=== PATIENT | female | born 1990 | race Caucasian/White ===

== ENCOUNTER 2019-10-12 11:36 | Emergency (ER) | payer SELFPAY ==
--- OUTSIDE RECORDS SUMMARY | 2019-10-12 12:34 | XMS REPORT | Summary of Care ---
:1990 Author Organization [facility] Address [address] [place] [address]- Encounter HQ Elliott(FIN) [id number] Date(s): 11/09/18 - 11/09/[address] [address]- Encounter Diagnosis Hypokalemia (Discharge Diagnosis) - 11/09/18 Discharge Disposition: Home or Self Care Attending Physician: Kumar Evans MD Vital Signs Most recent to oldest 1 2 3 [Reference Range]: Height 170.18 cm (11/09/18 1:03 PM) Temperature Oral [96.4-99.1 98.9 DegF 99.7 DegF DegF] (11/09/18 7:23 PM) *HI* (11/09/18 1:03 PM) Blood Pressure [90-140/60-90 118/68 mmHg 120/71 mmHg 115 /67 mmHg mmHg] (11/09/18 7:23 PM) (11/09/18 5:33 PM) (11/09/18 4:0 5 PM) Respiratory Rate [14-20 BRMIN] 17 BRMIN 18 BRMIN 1 8 BRMIN (11/09/18 7:23 PM) (11/09/18 5:33 PM) (11/09/18 4:0 5 PM) Peripheral Pulse Rate [60-100 84 bpm 82 bpm 72 bpm bpm] (11/09/18 7:23 PM) (11/09/18 5:33 PM) (11/09/18 4:0 5 PM) Weight 62.273 kg (11/09/18 1:03 PM) Body Mass Index 21.5 m2 (11/09/18 1:03 PM) Problem List No data available for this section Allergies, Adverse Reactions, Alerts No Known Allergies Medications potassium chloride 20 mEq oral tablet, extended release 20 mEq = 1 tab, PO, BID, # 4 tab, 0 Refill(s) Start Date: 11/09/18 Status: Orderedpotassium chloride 20 mEq oral tablet, extended release 40 mEq, Route: PO, Drug form: ERTAB, ONCE, Dosing Weight 62.273, kg, Priority: STAT, Start date: 11/09/18 17:04:00 CDT, Stop date: 11/09/18 17:04:00 CDT Start Date: 11/09/18 Stop Date: 11/09/18 Status: CompletedSaline Flush 0.9% 10 mL, Route: IVP, Drug Form: INJ, Dosing Weight 62.273, kg, PRN, PRN Line Flush, Start date: 11/09/18 13:14:00 CDT, Duration: 30 day, Stop date: 12/09/18 13:13:00 CDT Notes: (Same as: BD Posiflush) Start Date: 11/09/18 Stop Date: 11/09/18 Status: Discontinued Results Most recent to oldest [Reference Range]: 1 Neutrophils # [1.5-8.1 K/CMM] 5.1 K/CMM (11/09/18 1:29 PM) Lymphocytes # [1.0-5.5 K/CMM] 1.1 K/CMM (11/09/18 1:29 PM) Monocytes # [0.0-0.8 K/CMM] 0.8 K/CMM (11/09/18 1:29 PM) Eosinophils # [0.0-0.5 K/CMM] 0.3 K/CMM (11/09/18 1:29 PM) eGFR 78 mL/min/1.73m2 1 *NA* (11/09/18 1:29 PM) A/G Ratio [0.7-1.6] 0.8 (11/09/18 1:29 PM) Albumin Lvl [3.5-5.0 g/dL] 3.8 g/dL (11/09/18 1:29 PM) Alk Phos [39-136 unit/L] 79 unit/L (11/09/18 1:29 PM) ALT [0-65 unit/L] 32 unit/L (11/09/18 1:29 PM) AGAP [10.0-20.0 mEq/L] 11.8 mEq/L (11/09/18 1:29 PM) AST [0-37 unit/L] 28 unit/L (11/09/18 1:29 PM) B/C Ratio [6-25] 8 (11/09/18 1:29 PM) Basophils [0.0-1.0 %] 0.4 % (11/09/18 1: PM) BUN [7-22 mg/dL] 8 mg/dL (11/09/18 1:29 PM) Calcium Lvl [8.5-10.5 mg/dL] 9.7 mg/dL (11/09/18 1: PM) Chloride Lvl [95-109 mEq/L] 103 mEq/L (11/09/18 1: PM) CO2 [24-32 mEq/L] 29 mEq/L (11/09/18: PM) Creatinine Lvl [0.50-1.40 mg/dL] 0.99 mg/dL (11/09/18 1: PM) Eosinophils [0.0-4.0 %] 3.7 % (11/09/18 1: PM) Globulin [2.7-4.2 g/dL] 4.6 g/dL *HI* (11/09/18:29 PM) Glucose Lvl [70-99 mg/dL] 117 mg/dL *HI* (11/09/18 1: PM) Hct [36.0-48.0 %] 40.9 % (11/09/18 1:29 PM) Hgb [12.0-16.0 g/dL] 13.6 g/dL (11/09/18 1:29 PM) Potassium Lvl [3.5-5.1 mEq/L] 2.8 mEq/L 2 *CRIT* (11/09/18 1:29 PM) Lipase Lvl [73-393 unit/L] 110 unit/L (11/09/18 1:29 PM) Lymphocytes [20.0-40.0 %] 14.7 % *LOW* (11/09/18 1:29 PM) MCH [27.0-31.0 pg] 26.7 pg *LOW* (11/09/18 1:29 PM) MCHC [32.0-36.0 g/dL] 33.3 g/dL (11/09/18 1:29 PM) MCV [80.0-98.0 fL] 80.3 fL (11/09/18 1:29 PM) Monocytes [2.0-12.0 %] 11.2 % (11/09/18 1:29 PM) MPV [7.4-10.4 fL] 9.6 fL (11/09/18 1:29 PM) Sodium Lvl [135-145 mEq/L] 141 mEq/L (11/09/18 1:29 PM) Platelet [133-450 K/CMM] 249 K/CMM (11/09/18 1:29 PM) Segs [45.0-75.0 %] 70.0 % (11/09/18 1:29 PM) Total Protein [6.4-8.4 g/dL] 8.4 g/dL (11/09/18 1:29 PM) RBC [4.20-5.40 M/CMM] 5.10 M/CMM (11/09/18 1:29 PM) RDW [11.5-14.5 %] 14.0 % (11/09/18 1:29 PM) S Preg [Negative] Negative *NA* (11/09/18 1:29 PM) Bili Total [0.2-1.3 mg/dL] 0.7 mg/dL (11/09/18 1:29 PM) UA Bacteria [None Seen /HPF] Occasional /HPF *NA* (11/09/18 1:29 PM) UA Bili [Negative] Negative *NA* (11/09/18 1:29 PM) UA Blood [Negative] Negative (11/09/18 1:29 PM) UA Color [Yellow] Light Yellow *NA* (11/09/18 1:29 PM) UA Glucose [Negative mg/dL] Negative mg/dL *NA* (11/09/18 1:29 PM) UA Ketones Negative *NA* (11/09/18 1:29 PM) UA Leuk Est [Negative] Negative (11/09/18 1:29 PM) UA Nitrite [Negative] Negative (11/09/18 1:29 PM) UA pH [5.0-8.0] 8.0 (11/09/18 1:29 PM) UA Protein [Negative mg/dL] Negative mg/dL (11/09/18 1:29 PM) UA Spec Grav [<=1.030] 1.004 (11/09/18 1:29 PM) UA Sq Epi [Few /LPF] Moderate /LPF *ABN* (11/09/18 1:29 PM) UA Turbidity [Clear] Clear (11/09/18 1:29 PM) UA Urobilinogen [0.1-1.0 mg/dL] 2.0 mg/dL *HI* (11/09/18 1:29 PM) UA WBC [0-5 /HPF] 2 /HPF (11/09/18 1:29 PM) WBC [3.7-10.4 K/CMM] 7.3 K/CMM (11/09/18 1:29 PM) Micro? Not Indicated *NA* (11/09/18 1:29 PM) 1Result Comment: The eGFR is calculated using the CKD-EPI formula. In most young, healthy individualsthe eGFR will be >90 mL/min/1.73m2. The eGFR declines with age. An eGFR of 60-89 may be normal insome populations, particularly the elderly, for whom the CKD-EPI formula has not been extensively validated. Use of the eGFR is not recommended in the following populations: Individuals with unstable creatinine concentrations, including patients and those with serious co-morbid conditions. Patients with extremes in muscle mass or diet. The data above are obtained from the National Kidney Disease Education Program (NKDEP) which additionally recommends that when the eGFR is used in patients with extremes of body mass index for purposesof drug dosing, the eGFR should be multiplied by the estimated BMI.2Result Comment: Critical Result(s) called to Evert Moore at 11/09/2018 14:04 by hy. Read back OK. Immunizations No data available for this section Procedures No data available for this section Social History Social History Type Response Smoking Status Unknown if ever smoked; Conc erns about tobacco use in household: No; Exposure to Tobacco Smoke None; Cigarette Smoking Last 365 Days No; Reg Smoking Cessation Counseling No entered on: 11/09/18 Assessment and Plan No data available for this section
--- OUTSIDE RECORDS SUMMARY | 2019-10-12 12:34 | XMS REPORT | Clinical Summary ---
:1990 Author Organization [facility] Address [address] [place] [address] Care Team Providers Name Role Phone Unavailable Primary Care Provider Unavailable Allergies No Known Allergies Medications Medication Sig Dispensed Refills Start Date End Date Status risperiDONE Take 1 tablet 60 tablet 0 09/01/2019 Act mane (RISPERDAL) 1 mg by mouth 2 tabletIndications: times daily. Unspecified mood (affective) disorder gabapentin Take 1 capsule 90 capsule 0 09/01/2019 Ac tive (NEURONTIN) 300 mg by mouth 3 capsuleIndications times daily. : Unspecified mood (affective) disorder risperiDONE Take 1 tablet 28 tablet 0 08/29/2019 09/01/2019 Di scontinued (RISPERDAL) 1 mg by mouth 2 tabletIndications: times daily Unspecified mood for 14 days. (affective) disorder gabapentin Take 1 capsule 42 capsule 0 08/29/2019 09/01/2019 D iscontinued (NEURONTIN) 300 mg by mouth 3 capsuleIndications times daily : Unspecified mood for 14 days. (affective) disorder Active Problems Problem Noted Date care in third trimester 07/03/2017 Polyhydramnios affecting 05/07/2017 Large for dates 05/07/2017 Marginal placenta previa 04/10/2017 Bipolar disorder Psychosis Amphetamine use disorder, severe, dependence Alcohol use disorder, moderate, dependence Chest pain Encounters Date Type Specialty Care Team Description 09/01/2019 Refill Psychiatry Shelley Mims Unspecified mood MD Fredy (affective) dis order 08/29/2019 - Emergency Emergency Medicine Jeanette Mcintosh MD Uns pecified mood (affective) disorder (Primary Dx); 08/30/2019 Bipolar affecti ve disorder, current episode mixed, current episode severity unspecified; Bipolar affecti ve disorder, remission status unspecified; Psychosis, unsp ecified psychosis type; Amphetamine use disorder, severe, dependence; Alcohol use dis order, moderate, dependence; Chest pain, uns pecified type 05/30/2019 - Emergency Emergency Medicine Moses Berry abdominal pain (Primary Dx); 05/31/2019 MD Zohaib Vagina bleeding after 10/11/2018 Social History Tobacco Use Types Packs/Day Years Used Date Current Every Day Smoker Smokeless Tobacco: Current User Alcohol Use Drinks/Week oz/Week Comments Never Alcohol Habits Answer Date Recorded How often do you have a drink containing alcohol? Never 08/29/2019 How many drinks containing alcohol do you have on a typical Not asked day when you are drinking? How often do you have six or more drinks on one occasion? No t asked Sex Assigned at Date Recorded Not on file Job Start Date Occupation Industry Not on file Not on file Not on file Travel History Travel Start Travel End No recent travel history available. Last Filed Vital Signs Vital Sign Reading Time Taken Comments Blood Pressure 130/87 08/29/2019 7:32 PM CDT Pulse 90 08/29/2019 7:32 PM CDT Temperature 36.8 C (98.2 F) 08/29/2019 7:32 PM CDT Respiratory Rate 18 08/29/2019 7:32 PM CDT Oxygen Saturation 100% 08/29/2019 7:32 PM CDT Inhaled Oxygen Concentration - - Weight 75 kg (165 lb 6.4 oz) 05/30/2019 6:34 PM ELECTRICAL POWER STATION TECHNICIAN Height - - Body Mass Index - - Plan of Treatment Health Maintenance Due Date Last Done Comments Cervical Cancer Scrn (3 Yrs) 09/04/2011 IMM Influenza Seasonal Feb to July (>/= 19 yrs) 02/23/2020 Procedures Procedure Name Priority Date/Time Associated Diagnosis Comme nts ECHG EKG PROC 12 LEAD Routine 08/29/2019 11:53 Re sults for this EKG; TRACING ONLY PM CDT procedure are in the results section. TROPONIN I POC Routine 08/29/2019 11:16 Results f or this PM CDT procedure are i n the results section. URINE DRUG SCREEN STAT 08/29/2019 9:58 Result s for this PM CDT procedure are i n the results section. TEST STAT 08/29/2019 9:58 Results f or this PM CDT procedure are i n the results section. ECHG EKG PROC 12 LEAD Routine 08/29/2019 9:43 Re sults for this EKG; TRACING ONLY PM CDT procedure are in the results section. BMP POC Routine 08/29/2019 9:30 Results for this PM CDT procedure are i n the results section. CREATININE POC Routine 08/29/2019 9:29 Results f or this PM CDT procedure are i n the results section. TROPONIN I POC Routine 08/29/2019 9:26 Results f or this PM CDT procedure are i n the results section. CBC STAT 08/29/2019 9:22 Results for this PM CDT procedure are i n the results section. CBC/DIFF STAT 08/29/2019 9:22 Results for this PM CDT procedure are i n the results section. XRAY CHEST 2 VIEWS STAT 08/29/2019 8:45 Bipolar affective Results for this PM CDT disorder, current procedure are in episode mixed, the results current episode section. severity unspecified POCT URINE DIPSTICK - STAT 05/30/2019 10:02 Re sults for this PM ELECTRICAL POWER STATION TECHNICIAN procedure are i n the results section. URINALYSIS STAT 05/30/2019 10:02 Results for this PM ELECTRICAL POWER STATION TECHNICIAN procedure are i n the results section. URINALYSIS STAT 05/30/2019 10:02 Results for this PM ELECTRICAL POWER STATION TECHNICIAN procedure are i n the results section. BMP POC Routine 05/30/2019 9:36 Results for this PM ELECTRICAL POWER STATION TECHNICIAN procedure are i n the results section. CBC STAT 05/30/2019 9:35 Results for this PM ELECTRICAL POWER STATION TECHNICIAN procedure are i n the results section. BETA-HCG, STAT 05/30/2019 9:35 Results for this QUANTITATIVE PM ELECTRICAL POWER STATION TECHNICIAN procedure are i n the results section. CBC/DIFF STAT 05/30/2019 9:35 Results for this PM ELECTRICAL POWER STATION TECHNICIAN procedure are i n the results section. after 10/11/2018 Results 12 LEAD EKG (08/29/2019 11:53 PM CDT) 12 LEAD EKG FOR P [facility] Test Date: 2019-08-29 Pat Name: EMANI Hart ment: [id number] Room: Gender: F Infection Control Coordinator: [id number] : 1990 Requested By: JEANETTE MCINTOSH Order Number: [id number] Nikhil camarena MD: Andria Call Measu rements Intervals [place] Rate: 81 P: 59 CO: 102 QRS: 81 QRSD: 89 T: 24 QT: 362 QTc: 421 Interpretive S tatements SINUS RHYTHM WITH SINUS ARRHYTHMIA WITH SHORT CO INTER PAULA NONSPECIFIC ST & T-WAVE ABNORMALITY Reviewed by Electronically Signed On 08-30-2019 5:07:37 CDT by Janusz Call Specimen Performing Organization Address [facility] Phone Number SMS POCT TROPONIN I POC docked device (08/29/2019 11:16 PM CDT)Only the most recent of2 resultswithin the time period is included. Pathologist Sig nature Troponin POC 0.01 0.00 - 0.08 ng/mL [facility] Specimen Blood, venous Performing Organization Address [facility] Phone Number [facility] [address] [place] [address] Urine Drug Screen (08/29/2019 9:58 PM CDT) Opiate, Ur Negative Negative [facility] Comment: [facility] Calibrated Standard: Morphine Positive if urine level > or = 300 ng/dL Amphetamine Positive (A) Negative [facility] Comment: [facility] Calibrated Standard: D-Methamphetamine Positive if urine level > or = 1000 ng/mL Barbiturate Negative Negative [facility] Comment: [facility] Calibrated Standard: Secobarbital Positive if urine level is > or = 200 ng/mL Benzodiazepine Negative Negative [facility] Comment: [facility] Calibrated Standard: Lormethazepam Positive if urine level is > or = 200 ng/mL Cocaine Negative Negative [facility] Comment: [facility] Calibrated Standard: Benzoylecgonine Positive if urine level > or = 300 ng/dL PCP Negative Negative [facility] Comment: [facility] Calibrated Standard: Phencyclidine Positive if urine level > or = 25 ng/dL Cannabinoid Negative Negative [facility] Comment: [facility] Calibrated Standard: 11 nor-delta(9)-THC carboxylic ac id Positive if urine level > or = 50 ng/mL Specimen Urine - Voided, urine Performing Organization Address [facility] Phone Number [facility] [address] [place], [place] [phone] Test (08/29/2019 9:58 PM CDT) Pathologist Sig nature Negative Negative [facility] Specimen Urine Performing Organization Address [facility] Phone Number [facility] [address] [place] [address] 12 LEAD EKG (08/29/2019 9:43 PM CDT) 12 LEAD EKG FOR [facility] SMS Test Date: 2019-08-29 Pat Name: EMANI Hart ment: [id number] Room: Gender: F Infection Control Coordinator: [id number] : 1990 2 Requested By: KYREE Marie Order Number: [id number] Nikhil camarena MD: Andria Call Measu rements Intervals [place] Rate: 76 P: -45 CO: 100 QRS: 79 QRSD: 90 T: 27 QT: 367 QTc: 414 Interpretive S tatements ECTOPIC ATRIAL RHYTHM WITH SHORT CO INTERVAL NONSPECIFIC T-WAVE ABNORMALITY ABNORMAL RHYTHM ECG Reviewed by Electronically Signed On 08-30-2019 5:08:22 CDT by Janusz Call Specimen Performing Organization Address [facility] Phone Number SMS POCT BMP POC docked device (08/29/2019 9:30 PM CDT)Only the most recent of2 resultswithin the time period is included. Pathologist Sig nature Sodium POC 139 136 - 145 mmol/L [facility] Potassium POC 3.6 3.5 - 5.1 mmol/L [facility] Chloride POC 104 98 - 107 mmol/L [facility] TCO2 POC 26 21 - 32 mmol/L [facility] Urea Nitrogen POC 11 7 - 18 mg/dL [facility] Glucose POC 88 74 - 106 mg/dL [facility] Hemoglobin POC 14.6 12 - 16 g/dL [facility] Hematocrit POC 43.0 37.0 - 47.0 % [facility] Specimen Blood, venous Performing Organization Address [facility] Phone Number [facility] [address] [place] [address] POCT CREATININE POC docked device (08/29/2019 9:29 PM CDT) Pathologist Sig nature Creatinine POC 0.7 0.6 - 1.3 mg/dL [facility] GFR, Estimated >90 >=90 mL/min/1.73 m2 [facility] Specimen Blood, venous Performing Organization Address City/State/Zipcode Phone Number [facility] [address] [place] [address] [phone] CBC/Diff (08/29/2019 9:22 PM CDT)Only the most recent of2 resultswithin the time period is included. WBC 7.5 4.5 - 11.0 K/uL [facility] RBC 4.81 4.20 - 5.40 [facility] M/uL Hemoglobin 13.5 12.0 - 16.0 [facility] g/dL Hematocrit 41.9 37.0 - 47.0 % [facility] MCV 87.1 82.0 - 92.0 fL [facility] MCH 28.1 27.0 - 32.0 pg [facility] MCHC 32.2 32.0 - 36.0 [facility] g/dL RDW 41.8 36.4 - 46.3 fL [facility] Platelet 172 150 - 400 K/uL [facility] Mean Platelet Volume 11.8 9.4 - 12.4 fL [facility] Percent NRBC 0.0 % [facility] Neutrophil 63.7 34.0 - 70.0 % [facility] Lymphs 27.9 20.0 - 50.0 % [facility] Monocytes 7.5 5.0 - 12.0 % [facility] Eos 0.3 (L) 0.7 - 5.0 % [facility] Basos 0.5 0.1 - 1.2 % [facility] Immature Granulocytes 0.1 0.0 - 0.5 % [facility] Neutrophils (Absolute) 4.78 1.56 - 6.13 [facility] Y K/uL Lymphs (Absolute) 2.09 1.18 - 3.74 [facility] K/uL Monocytes(Absolute) 0.56 (H) 0.24 - 0.36 [facility] K/uL Eos (Absolute) 0.02 (L) 0.04 - 0.36 [facility] K/uL Baso (Absolute) 0.04 0.01 - 0.08 [facility] K/uL Immature Grans (Abs) 0.01 0.00 - 0.03 [facility] K/uL Absolute NRBC 0.00 K/uL [facility] Specimen Blood Performing Organization Address [facility]/Zipcode Phone Number [facility] [address] [place] [address] XRAY CHEST 2 VIEWS (08/29/2019 8:45 PM CDT) Specimen Impressions Performed At IMPRESSION: [facility] No acute thoracic abnormality. Dictated By: Graham Garcia MD, 0 9:32 PM I have reviewed the study and agree with the findings in this report. Signed By: Justina Magana MD, 08/29/2019 9:46 PM Narrative Performed At EXAMINATION: XRAY CHEST 2 VIEWS, Front al and lateral SMS INDICATION: CP COMPARISON: None FINDINGS: TUBES/LINES/DEVICES: None LUNGS: No consolidations or edema. PLEURA: No effusions or pneumothorax. HEART/MEDIASTINUM: Normal cardiomedias tinal silhouette. MUSCULOSKELETAL: No acute findings. UPPER ABDOMEN: Normal Procedure Note Interface, Rad/Mammog In - 08/29/2019 9 :52 PM CDT EXAMINATION: XRAY CHEST 2 VIEWS, Frontal and lateral INDICATION: CP COMPARISON: None FINDINGS: TUBES/LINES/DEVICES: None LUNGS: No consolidations or edema. PLEURA: No effusions or pneumothorax. HEART/MEDIASTINUM: Normal cardiomediast inal silhouette. MUSCULOSKELETAL: No acute findings. UPPER ABDOMEN: Normal IMPRESSION IMPRESSION: No acute thoracic abnormality. Dictated By: Graham Garcia MD, 0 9:32 PM I have reviewed the study and agree with the findings in this report. Signed By: Justina Magana MD, 08/29/2019 9:46 PM Performing Organization Address [facility]/Zipcode Phone Number [facility] Urinalysis (05/30/2019 10:02 PM ELECTRICAL POWER STATION TECHNICIAN) Pathologist Sig nature Color Yellow Colorless, Straw, [facility] Yellow Clarity Hazy (A) Clear [facility] Spec [place], Ur 1.028 1.001 - 1.035 [facility] pH, Ur 6.0 5.0 - 8.0 [facility] Protein, Ur 2+ (A) Negative mg/dL [facility] Glucose, Ur Negative Negative mg/dL [facility] Ketone, Ur Negative Negative mg/dL [facility] Bilirubin, Ur Negative Negative mg/dL [facility] Nitrite, Ur Negative Negative [facility] Leukocyte Negative Negative mg/dL [facility] Blood, Ur 3+ (A) Negative mg/dL [facility] RBC 92 (H) 0 - 4 /HPF [facility] WBC 2 0 - 5 /HPF [facility] Epithelial Cell 20 (H) <=1 /HPF [facility] Mucous Present (A) None seen /HPF [facility] Urobilinogen, Ur <1.0 <1.0 EU/dL [facility] Specimen Urine Performing Organization Address [facility] Phone Number [facility] [address] [place], [place] [phone] POCT Urine - (05/30/2019 10:02 PM ELECTRICAL POWER STATION TECHNICIAN) Pathologist Sig nature Control paSS neg Hcg, Quantitative (05/30/2019 9:35 PM ELECTRICAL POWER STATION TECHNICIAN) Pathologist Sig nature hCG, Quantitative <1.0 <5.0 mIU/mL [facility] Specimen Blood Performing Organization Address [facility] Phone Number [facility] [address] [place], [place] [phone] after 10/11/2018 Insurance Payer Benefit Plan / Subscriber ID Effective Dates Phone Addre ss Type Group [facility] CH[facility]LE xxxxxxx 2019- [phone] [id number] [place] [address] [facility] FAMILY xxxxxxx 2019-Presen [phone] [id number] [place] [address]
--- OUTSIDE RECORDS SUMMARY | 2019-10-12 12:34 | XMS REPORT | Continuity of Care Document ---
:1990 Author Organization [facility] Information [place] Care Team Providers Name Role Phone [facility] [place] Unavailable Un available Problems Problem Status Onset Classification Date Comments Sourc e Date Reported Hypokalemia 11/11/2018 [place] rial 9 [facility] FLANK PAIN Active Memori al 9 [facility] Medications Medication Details Route Status Patient Ordering Order Source Instructions Provider Date potassium 20 mEq = 1 Active chloride 20 tab, PO, 019 [facility] oral BID, # 4 [facility] tablet, tab, 0 extended Refill(s) release potassium 40 mEq, Inactive chloride 20 Route: PO, 019 [facility] mEq oral Drug form: [facility] tablet, ERTAB, extended ONCE, release Dosing Weight 62.273, kg, Priority: STAT, Start date: 11/09/18 17:04:00 CDT, Stop date: 11/09/18 17:04:00 CDT Saline Flush Notes: Inactive 0.9% (Same as: 019 [facility] [place] Posiflush) Allergies, Adverse Reactions, Alerts No Known Medication Allergies Immunizations No Data Provided for This Section Results Order Name Results Value Reference Date Interpretation Comments Natasha rce Range CHEM PANEL Lipase Lvl 110 73 - 393 11/09 [facility] ELECTROLYTE AGAP 11.8 10.0 - 11/09 MH S 20.0 [facility] ELECTROLYTE B/C Ratio 8 6 - 25 11/09 [facility] ELECTROLYTE Globulin 4.6 2.7 - 4.2 11/09 S [facility] ELECTROLYTE A/G Ratio 0.8 0.7 - 1.6 11/09 S [facility] ELECTROLYTE Glucose Lvl 117 70 - 99 11/09 [facility] ELECTROLYTE BUN 8 7 - 22 11/09 S [facility] ELECTROLYTE CO2 29 24 - 32 11/09 S [facility] ELECTROLYTE Chloride Lvl 103 95 - 109 11/09 [facility] ELECTROLYTE Potassium 2.8 3.5 - 5.1 11/09 Result S Lvl Comment: [facility] Result(s) called to Evert Moore at 11/09/2018 14:04 by hy. Read back OK. ELECTROLYTE Sodium Lvl 141 135 - 145 11/09 MH S [facility] ELECTROLYTE AST 28 0 - 37 11/09 MH S [facility] ELECTROLYTE Creatinine 0.99 0.50 - 11/09 MH S Lvl 1.40 [facility] ELECTROLYTE ALT 32 0 - 65 11/09 MH S [facility] ELECTROLYTE eGFR 78 11/09 Result S Comment: The [facility] eGFR is [place] calculated using the CKD-EPI formula. In most young, healthy individuals the eGFR will be >90 mL/min/1.73m2 . The eGFR declines with age. An eGFR of 60-89 may be normal in some populations, particularly the elderly, for whom the CKD-EPI formula has not been extensively validated. Use of the eGFR is not recommended in the following populations:< br/>
[place] viduals with unstable creatinine concentration s, including patients and those with serious co-morbid conditions.<b r/>
Patie nts with extremes in muscle mass or diet.

The data above are obtained from the National Kidney Disease Education Program (NKDEP) which additionally recommends that when the eGFR is used in patients with extremes of body mass index for purposes of drug dosing, the eGFR should be multiplied by the estimated BMI. ELECTROLYTE Total 8.4 6.4 - 8.4 11/09 MH S [facility] ELECTROLYTE Bili Total 0.7 0.2 - 1.3 11/09 MH S [facility] ELECTROLYTE Calcium Lvl 9.7 8.5 - 10.5 11/09 MH S [facility] ELECTROLYTE Albumin Lvl 3.8 3.5 - 5.0 11/09 MH S [facility] ELECTROLYTE Alk Phos 79 39 - 136 11/09 MH S [facility] ENDOCRINOLO S Preg Negative Negative 11/09 GY *NA* /2018 [facility] (11/09/18 1:29 PM) [facility] HEMATOLOGY MPV 9.6 7.4 - 10.4 11/09 [facility] HEMATOLOGY MCHC 33.3 32.0 - 11/09 MH 36.0 [facility] HEMATOLOGY RDW 14.0 11.5 - 11/09 MH 14.5 /2019 [facility] HEMATOLOGY Platelet 249 133 - 450 11/09 /2018 [facility] HEMATOLOGY RBC 5.10 4.20 - 11/09 MH 5.40 /2018 [facility] HEMATOLOGY WBC 7.3 3.7 - 10.4 11/09 /2018 [facility] HEMATOLOGY Hct 40.9 36.0 - 11/09 MH 48.0 /2018 [facility] HEMATOLOGY Hgb 13.6 12.0 - 11/09 MH 16.0 /2018 [facility] HEMATOLOGY MCH 26.7 27.0 - 11/09 MH 31.0 /2018 [facility] HEMATOLOGY MCV 80.3 80.0 - 11/09 MH 98.0 /2018 [facility] HEMATOLOGY Eosinophils 3.7 0.0 - 4.0 11/09 /2018 [facility] HEMATOLOGY Eosinophils 0.3 0.0 - 0.5 11/09 # /2018 [facility] HEMATOLOGY Lymphocytes 1.1 1.0 - 5.5 11/09 # /2018 [facility] HEMATOLOGY Monocytes # 0.8 0.0 - 0.8 11/09 /2018 [facility] HEMATOLOGY Basophils 0.4 0.0 - 1.0 11/09 /2018 [facility] HEMATOLOGY Neutrophils 5.1 1.5 - 8.1 11/09 # /2018 [facility] HEMATOLOGY Lymphocytes 14.7 20.0 - 11/09 40.0 /2018 [facility] HEMATOLOGY Monocytes 11.2 2.0 - 12.0 11/09 /2018 [facility] HEMATOLOGY Segs 70.0 45.0 - 11/09 75.0 [facility] URINE AND UA Ketones Negative 11/09 STOOL /2018 [facility] URINE AND UA WBC 2 0 - 5 11/09 STOOL /2018 [facility] URINE AND Micro? Not Indicated 11/09 STOOL *NA* /2018 [facility] (11/09/18 1:29 PM) [facility] URINE AND UA Bacteria Occasional None Seen 11/09 STOOL /HPF /HPF /2018 [facility] URINE AND UA Sq Epi Moderate Few /LPF 11/09 STOOL /LPF /2018 [facility] URINE AND UA 2.0 0.1 - 1.0 11/09 STOOL Urobilinogen /2018 [facility] URINE AND UA Nitrite Negative Negative 11/09 STOOL (11/09/18 1:29 PM) /2018 [facility] URINE AND UA Leuk Est Negative Negative 11/09 STOOL (11/09/18 1:29 PM) /2018 [facility] URINE AND UA Blood Negative Negative 11/09 STOOL (11/09/18 1:29 PM) /2018 [facility] URINE AND UA Protein Negative Negative 11/09 STOOL mg/dL mg/dL /2018 [facility] URINE AND UA Glucose Negative Negative 11/09 STOOL mg/dL mg/dL /2018 [facility] URINE AND UA Bili Negative Negative 11/09 STOOL *NA* /2018 [facility] (11/09/18 1:29 PM) [facility] URINE AND UA pH 8.0 5.0 - 8.0 11/09 STOOL /2018 [facility] URINE AND UA Color Light Yellow Yellow 11/09 STOOL *NA* /2018 [facility] (11/09/18 1:29 PM) [facility] URINE AND UA Turbidity Clear Clear 11/09 STOOL (11/09/18 1:29 PM) /2018 [facility] URINE AND UA Spec Grav 1.004 <=1.030 11/09 STOOL /2018 [facility] Pathology Reports No Data Provided for This Section Diagnostic Reports No Data Provided for This Section Consultation Notes No Data Provided for This Section Discharge Summaries No Data Provided for This Section History and Physicals No Data Provided for This Section Vital Signs Vital Sign Value Date Comments Source Respitory Rate 17 11/10/2018 [facility] Temperature Oral (F) 98.9 F 11/10/2018 [facility] Heart Rate 84 11/10/2018 [facility] Systolic (mm Hg) 118 11/10/2018 [facility] Diastolic (mm Hg) 68 11/10/2018 [facility] [place] Heart Rate 82 11/09/2018 [facility] Respitory Rate 18 11/09/2018 [facility] Systolic (mm Hg) 120 11/09/2018 [facility] Diastolic (mm Hg) 71 11/09/2018 [facility] [place] Heart Rate 72 11/09/2018 [facility] Systolic (mm Hg) 115 11/09/2018 [facility] Diastolic (mm Hg) 67 11/09/2018 [facility] Respitory Rate 18 11/09/2018 [facility] Weight 62.273 11/09/2018 [facility] Temperature Oral (F) 99.7 F 11/09/2018 [facility] Height 170.18 cm 11/09/2018 [facility] BMI Calculated 21.5 11/09/2018 [facility] C it[facility] Encounters Location Location Encounter Encounter Reason Attending ADM DC Stat us Source Details Type Number For Provider Date Date Visit [facility] Emergency [id number] uKmar Evans 11/09 11/10 [facility] /2018 [facility] Procedures No Data Provided for This Section Assessment and Plan No Data Provided for This Section Plan of Care No Data Provided for This Section Social History Social History Date Source Social History TypeResponse 11/09/2018 [facility] Smoking Status Unknown if ever smoked; Concerns about t obacco use in household: No; Exposure to Tobacco Smoke None; Cigarette Smoking Last 365 Days No; Reg Smoking Cessation Counseling No entered on: 11/09/18 Family History No Data Provided for This Section Advance Directives No Data Provided for This Section Functional Status No Data Provided for This Section
--- OUTSIDE RECORDS SUMMARY | 2019-10-12 12:35 | XMS REPORT ---
:1990 Author Organization [facility] t Address [address] [place]. [address] [place] [address] Care Team Providers Name Role Phone Prasanna ADAIR, E Attending Clinician Nima ADAIR Attending Clinician Jamal ADAIR D Attending Clinician Rickey Evans Attending Clinician Payers Payer Name Policy Type Policy Number Effective Date Expiration Date S tisha HOMELESS xxxxxxx 2019 2020 Larios GRANTHOMELESS 00:00:00 23:59:59 Health EVOEJcnrxthy51/1/[id number]- [id number] [place] [address] [facility] xxxxxxx 2019 Larios PLANNING 00:00:00 [facility] [phone], [place] [address] Problems Condition Condition Condition Status Onset Resolution Last Treating Co mments Source Name Details Category Date Date Treatment Clinician Date Disease Active Mode pool care in care in 07-03 Health third third 00:00: trimester trimester 00 Polyhydram Polyhydram Disease Active 2016-05 H rosa jaimes nios - Health affecting affecting 00:00: 00 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 Benji ris dates dates 07-08 Health 00:00: 00 Marginal Marginal Disease Active 2016-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 Social History Social Habit Start Date Stop Date Quantity Comments Source History SDOH Alcohol [facility] Std Drinks History SDNC Alcohol [facility] Binge Sex Assigned At [facility] Health Alcohol intake 2019-08-29 2019-08-29 [facility] 00:00:00 00:00:00 History SDOH Alcohol 2019-08-29 2019-08-29 1 [facility] Frequency 00:00:00 00:00:00 Smoking Status Start Date Stop Date Source Current every day smoker 2019-08-29 00:00:00 [facility] Medications Ordered Filled Start Stop Current Ordering Indication Dosage Frequency Signature Comments Components Source Medication Medication Date Date Medication? Clinician (SIG) Name Name risperiDONE Yes Unspecified 1mg Q.5D Take 1 [place] (RISPERDAL) 08-31 mood tablet by [facility] lt 1 mg tablet 00:00: (affective) mouth 2 00 disorder times daily. gabapentin Yes Unspecified 300mg Take 1 [place] (NEURONTIN) 08-31 mood capsule by alth 300 mg 00:00: (affective) mouth 3 capsule 00 disorder times daily. risperiDONE 2019- No Unspecified 1mg Q.5D Take 1 [place] (RISPERDAL) 08-28 mood tablet by He alth 1 mg tablet 00:00: 00:00 (affective) mouth 2 00 :00 disorder times daily for 14 days. gabapentin No Unspecified 300mg Take 1 [place] (NEURONTIN) 08-28 mood capsule by ealth 300 mg 00:00: 00:00 (affective) mouth 3 capsule 00 :00 disorder times daily for 14 days. Vital Signs Vital Name Observation Time Observation Value Comments Source Systolic blood pressure 2019-08-29 19:32:00 130 mm[Hg] [facility] Diastolic blood pressure 2019-08-29 19:32:00 87 mm[Hg] [facility] Heart rate 2019-08-29 19:32:00 90 /min [facility] Body temperature 2019-08-29 19:32:00 36.78 Carleen [facility] Respiratory rate 2019-08-29 19:32:00 18 /min Jessica is [facility] Oxygen saturation in 2019-08-29 19:32:00 100 /min [facility] Arterial blood by Pulse oximetry Body weight 2019-05-30 18:34:[address] [facility] Procedures Procedure Date / Time Performed Performing Clinician [facility] e ECHG EKG PROC 12 LEAD EKG; 2019-08-30 04:53:58 Norma Silva I [facility] TRACING ONLY TROPONIN I POC 2019-08-30 04:16:00 Jeanette Mcintosh h TEST 2019-08-30 02:58:00 Kyree Diehl [facility] URINE DRUG SCREEN 2019-08-30 02:58:00 Kyree Diehl [facility] ECHG EKG PROC 12 LEAD EKG; 2019-08-30 02:43:01 Kyree Diehl [facility] TRACING ONLY BMP POC 2019-08-30 02:30:00 Unknown, Provider Ric Cody [facility] CREATININE POC 2019-08-30 02:29:00 Unknown, Provider Ric patricio [facility] TROPONIN I POC 2019-08-30 02:26:00 Unknown, Provider Ric Cody [facility] CBC/DIFF 2019-08-30 02:22:00 Kyree Diehl [facility] CBC 2019-08-30 02:22:00 Kyree Diehl [facility] XRAY CHEST 2 VIEWS 2019-08-30 01:45:00 Norma Silva I [facility] URINALYSIS 2019-05-31 04:02:00 Emani Guzman h URINALYSIS 2019-05-31 04:02:00 Emani Guzman POCT URINE DIPSTICK - 2019-05-31 04:02:00 Emani Guzman [facility] BMP POC 2019-05-31 03:36:00 Unknown, [facility] CBC/DIFF 2019-05-31 03:35:00 Emani Guzman BETA-HCG, QUANTITATIVE 2019-05-31 03:35:00 Emani Guzman [facility] CBC 2019-05-31 03:35:00 Emani Guzman Plan of Care Planned Activity Planned Date Details Comments Source Future Scheduled Test 2020-02-23 00:00:00 IMM Influenza [facility] Seasonal Feb to July (>/= 19 yrs) [code = IMM Influenza Seasonal Feb to July (>/= 19 yrs)] Future Scheduled Test 2011-09-04 00:00:00 Cervical Cancer Scrn [facility] (3 Yrs) [code = Cervical Cancer Scrn (3 Yrs)] Encounters Start End Encounter Admission Attending Care Care Encounter Source Date/Time Date/Time Type Type Clinicians Facility Department ID 2019-08-07 2019-08-07 Outpatient E [facility] MED [id number] KM 09:55:00 09:55:00 2019-04-26 2019-04-26 Emergency E [facility] [id number] [facility] 21:05:00 21:05:00 [facility] 2018-11-09 2018-11-09 Outpatient EvansKumar [facility] [id number] Mem[facility] 13:02:17 19:59:00 Rickey Sumit 00 [facility] 2018-11-09 2018-11-09 Emergency E [facility] [id number] [facility] 13:02:00 13:02:00 [facility] 2017-07-03 2017-07-03 Outpatient [facility] [id number] [place] 09:10:28 09:10:28 Health 2017-05-04 2017-05-04 Outpatient [facility] [id number] [place] 12:29:09 12:29:09 Health Results Test Description Test Time Test Comments Results Result [facility] e Comments 12 LEAD EKG 12 LEAD EKG FOR [facility] is 7 [place] [facility] alth 05:08:27 [facility] Test Date: 4721-25-66Cie Name: EMANI CARRENO Department: 5520Patient ID: [id number] Room: Gender: F 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: [id number]: 1990 Requested By: KYREE Mensah Number: [id number] Leobardo MD: Andria Call MeasurementsIntervals [place] Rate: 76 P: -45PR: 100 QRS: 79QRSD: 90 T: 27QT: 367 QTc: 414 Interpretive StatementsECTOPIC ATRIAL RHYTHM WITH SHORT DC INTERVALNONSPECIFIC T-WAVE ABNORMALITYABNORMAL RHYTHM ECGReviewed by Electron ically Signed On 08-30-2019 5:08:22 CDT by [facility] 12 LEAD EKG 12 LEAD EKG FOR [facility] Jessica is 7 [place] [facility] 05:07:40 [facility] Test Date: 5905-19-21Gzq Name: EMANI CARRENO Department: 5520Patient ID: [id number] Room: Gender: F 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: [id number]: 1990 Requested By: JEANETTE MCINTOSH Order Number: [id number] Reading MD: Andria Call MeasurementsIntervals [place] Rate: 81 P: 59PR: 102 QRS: 81QRSD: 89 T: 24QT: 362 QTc: 421 Interpretive StatementsSINUS RHYTHM WITH SINUS ARRHYTHMIA WITH SHORT DC INTERVALNONSPECIFIC ST & T-WAVE ABNORMALITYReviewed by Electron ically Signed On 08-30-2019 5:07:37 CDT by [facility] Urine Drug Screen 2019-08-29 23:38:00 Test Item Value Reference Range Interpretation Comme nts Opiate, Ur (test code = 44467-7) Negative Negative Calibrated Standard: Morphine Positive if uri ne level > or = 300 ng/dL Amphetamine (test code = Positive Negative A Ca librated Standard: 36452-2) D-Methamphetami ne Positive if urine level > o r = 1000 ng/mL Barbiturate (test code = Negative Negative Ca librated Standard: 70522-8) Secobarbital Po sitive if urine level is > or = 200 ng/mL Benzodiazepine (test code = Negative Negative Calibrated Standard: 11862-2) Lormethazepam P ositive if urine level is > or = 200 ng/mL Cocaine (test code = 16099-7) Negative Negative Calibrated Standard: Benzoylecgonine Positive if urine level > or = 30 0 ng/dL PCP (test code = 43725-1) Negative Negative C alibrated Standard: Phencyclidine P ositive if urine level > or = 25 ng/dL Cannabinoid (test code = Negative Negative Ca librated Standard: 11 70693-9) nor-delta(9)-TH C carboxylic acid Positive if uri ne level > or = 50 ng/mL Lab Interpretation (test code = Abnormal 58173-1) [facility] TROPONIN I POC docked [id number] 23:29:00 Test Item Value Reference Range Interpretation Comments Troponin POC (test code = 0.01 ng/mL 0-0.08 08224544) Lab Interpretation (test code = Normal 77837-0) [facility] [id number] 22:57:00 Test Item Value Reference Range Interpretation Comments (test code = 81912283) Negative Negative Lab Interpretation (test code = Normal 85439-0) [facility][id number] 22:02:00 Test Item Value Reference Range Interpretation Comments WBC (test code = 6690-2) 7.5 K/uL 4.5-11 RBC (test code = 789-8) 4.81 4.20- 5.40 M/uL Hemoglobin (test code = 718-7) 13.5 g/dL 12-16 Hematocrit (test code = 4544-3) 41.9 % 37-47 MCV (test code = 787-2) 87.1 fL 82-92 MCH (test code = 785-6) 28.1 pg 27-32 MCHC (test code = 786-4) 32.2 g/dL 32-36 RDW (test code = 09331-9) 41.8 fL 36.4-46.3 Platelet (test code = 777-3) 172 K/uL 150-400 Mean Platelet Volume (test code = 11.8 fL 9.4-12.4 66583-4) Percent NRBC (test code = 05290424) 0.0 % Neutrophil (test code = 770-8) 63.7 % 34-70 Lymphs (test code = 736-9) 27.9 % 20-50 Monocytes (test code = 5905-5) 7.5 % 5-12 Eos (test code = 713-8) 0.3 % 0.7-5 L Basos (test code = 706-2) 0.5 % 0.1-1.2 Immature Granulocytes (test code = 0.1 % 0-0.5 16105453) Neutrophils (Absolute) (test code = 4.78 K/uL 1.56-6.13 47304155) Lymphs (Absolute) (test code = 2.09 K/uL 1.18-3.74 98498146) Monocytes(Absolute) (test code = 0.56 K/uL 0.24-0.36 H 94159425) Eos (Absolute) (test code = 0.02 K/uL 0.04-0.36 L 77357059) Baso (Absolute) (test code = 0.04 K/uL 0.01-0.08 98556755) Immature Grans (Abs) (test code = 0.01 K/uL 0-0.03 46626706) Absolute NRBC (test code = 0.00 K/uL 29339226) Lab Interpretation (test code = Abnormal 62029-7) [facility]ST 2 [id number] 21:46:52IMPRESSION: No acute thoracic abnormality. Dictated By: Graham Garcia MD, 08/29/2019 9:32 PM I have reviewed the study and agree with the findings in this report. Signed By: Justina Magana MD, 08/29/2019 9:46 PM Interface, Rad/Mammog In - 08/29/2019 9:52 PM CDTEXAMINATION: XRAY CHEST 2 VIEWS, Frontal and lateralINDICATION: CP COMPARISON: None FINDINGS: TUBES/LINES/DEVICES: NoneLUNGS: No consolidations or edema.PLEURA: No effusions or pneumothorax.HEART/MEDIASTINUM: Normal cardiomediastinal silho uette.MUSCULOSKELETAL: No acute findings.UPPER ABDOMEN: NormalIMPRESSIONIMPRESSION: No acute thoracic abnormality.Dictated By: Graham Garcia MD, 08/29/2019 9:32 PMI have reviewed the study and agree with the findings in this report.Signed By: Justina Magana MD, 08/29/2019 9:46 PMCam[place] [employer] POCT BMP POC docked [id number] 21:36:00 Test Item Value Reference Range Interpretation Comments Sodium POC (test code = 71325073) 139 mmol/L 136-145 Potassium POC (test code = 3.6 mmol/L 3.5-5.1 91116071) Chloride POC (test code = 104 mmol/L 98-107 26082412) TCO2 POC (test code = 32713792) 26 mmol/L 21-32 Urea Nitrogen POC (test code = 11 mg/dL 7-18 30410150) Glucose POC (test code = 86185046) 88 mg/dL 74-106 Hemoglobin POC (test code = 14.6 g/dL 12-16 19831502) Hematocrit POC (test code = 43.0 % 37-47 61002295) Lab Interpretation (test code = Normal 13587-3) [facility] CREATININE POC docked [id number] 21:33:00 Test Item Value Reference Range Interpretation Comments Creatinine POC (test code = 0.7 mg/dL 0.6-1.3 34783957) GFR, Estimated (test code = >90 >=90 mL/min/1.73 m2 53087028) Lab Interpretation (test code = Normal 54088-4) [facility], [id number] 23:09:00 Test Item Value Reference Range Interpretation Comments hCG, Quantitative (test code = <1.0 <5.0 mIU/mL 82843058) Lab Interpretation (test code = Normal 08237-3) [facility] [id number] 23:06:00 Test Item Value Reference Range Interpretation Comments Color (test code = 45499675) Yellow Colorless, Straw, Yellow Clarity (test code = Hazy Clear A 69609230) Spec Hardin, Ur (test code = 1.028 1.001-1.035 31799702) pH, Ur (test code = 53577542) 6.0 5.0-8.0 Protein, Ur (test code = 2+ Negative mg/dL A 11135494) Glucose, Ur (test code = Negative Negative mg/dL 51996979) Ketone, Ur (test code = Negative Negative mg/dL 72503997) Bilirubin, Ur (test code = Negative Negative mg/dL 96546664) Nitrite, Ur (test code = Negative Negative 96199344) Leukocyte (test code = Negative Negative mg/dL 56624615) Blood, Ur (test code = 3+ Negative mg/dL A 29108042) RBC (test code = 08127832) 92 0- 4 /HPF H WBC (test code = 86499671) 2 0- 5 /HPF Epithelial Cell (test code = 20 <=1 /HPF H 56110863) Mucous (test code = 36530433) Present None seen /HPF A Urobilinogen, Ur (test code = <1.0 <1.0 EU/dL 98124264) Lab Interpretation (test code Abnormal = 99810-0) [facility] Urine - [id number] 22:02:00 Test Item Value Reference Range Interpretation Comments Control (test code = 7172) paSS (test code = 7173) neg Lab Interpretation (test code = Normal 72636-4) [facility]
--- NOTE | 2019-10-12 13:47 | RAD REPORT ---
EXAM DESCRIPTION: Nic Single View10/12/2019 1:11 pm CLINICAL HISTORY: Chest pain COMPARISON: none FINDINGS: The lungs appear clear of acute infiltrate. The heart is normal size IMPRESSION: No acute abnormalities displayed
--- NOTE | 2019-10-12 14:00 | ER ---
Nurse's Notes [facility] Name: Lety Boyd Age: 29 yrs Sex: Female : 1990 Arrival Date: 10/12/2019 Time: 11:44 Bed 16 Private MD: Diagnosis: Chest pain, unspecified Presentation: 10/11 11:45 Chief complaint: EMS states: SENT [facility] SUBSTERNAL CRUSHING CP SINCE bp 0700. Coronavirus screen: Proceed with normal triage. Ebola Screen: No symptoms or risks identified at this time. Initial Sepsis Screen: Does the patient meet any 2 criteria? No. Patient's initial sepsis screen is negative. Does the patient have a suspected source of infection? No. Patient's initial sepsis screen is negative. Risk Assessment: Do you want to hurt yourself or someone else? Patient reports no desire to harm self or others. Onset of symptoms was October 12, 2019 at 07:00. Care prior to arrival: IV initiated. 20 GA, in the left antecubital area, Glucose check: 83. 11:45 Method Of Arrival: EMS: [facility] bp 11:45 Acuity: JULIA 3 bp Triage Assessment: 11:51 General: Appears in no apparent distress. comfortable, Behavior is cooperative, bp appropriate for age, anxious. Pain: Complains of pain in chest. EENT: No deficits noted. Neuro: No deficits noted. Cardiovascular: Rhythm is sinus rhythm. Respiratory: No deficits noted. GI: No signs and/or symptoms were reported involving the gastrointestinal system. : No signs and/or symptoms were reported regarding the genitourinary system. Derm: No deficits noted. Musculoskeletal: No deficits noted. Historical: - Allergies: 11:50 No Known Allergies; bp - Home Meds: 11:50 gabapentin oral oral [Active]; Risperdal Oral [Active]; Trazodone Oral [Active]; bp - PMHx: 11:50 Anxiety; Asthma; bp - Immunization history:: Adult Immunizations unknown. - Social history:: Smoking status: Patient reports the use of cigarette tobacco products, unknown amount. Screenin:53 Abuse screen: Denies threats or abuse. Denies injuries from another. Nutritional bp screening: No deficits noted. Tuberculosis screening: No symptoms or risk factors identified. Fall Risk None identified. Assessment: 11:52 General: SEE TRIAGE NOTE. bp 14:16 Reassessment: PT D/C HOME AMBULATORY, DX WITH NONSPECIFIC CHEST PAIN. [facility] PLACE EN bp ROUTE FOR TRANSPORT. 14:20 Reassessment: Patient appears in no apparent distress at this time. Patient and/or iw family updated on plan of care and expected duration. Pain level reassessed. Patient is alert, oriented x 3, equal unlabored respirations, skin warm/dry/pink. Patient states feeling better. Patient states symptoms have improved. Pain: Denies pain. 14:20 Pain: Pain does not radiate. Pain began. iw Vital Signs: 11:45 BP 112 / 78; Pulse 67; Resp 17; Temp 97.9; Pulse Ox 100% ; Weight 72.57 kg; bp 12:30 BP 90 / 72; Pulse 72; Resp 16; Pulse Ox 100% ; bp 14:16 BP 101 / 85; Pulse 62; Resp 12; Temp 98; Pulse Ox 100% ; bp ED Course: 11:44 Patient arrived in ED. bp 11:45 Blane Garzon MD is Attending Physician. kdr 11:48 Triage completed. bp 11:51 Arm band placed on. bp 11:53 Fifi Fsiher, RN is Primary Nurse. ca1 11:53 Patient has correct armband on for positive identification. Bed in low position. Call bp light in reach. Side rails up X2. cardiac monitor on. Pulse ox on. NIBP on. 11:53 Maintain EMS IV. Dressing intact. Good blood return noted. Site clean \T\ dry. Gauge \T\ bp site: 20 G LEFT AC. 11:55 Tramaine Hamilton, RN is Primary Nurse. bp 13:11 CXR XRAY In Process Unspecified. EDMS 14:20 No provider procedures requiring assistance completed. IV discontinued, intact, iw bleeding controlled, No redness/swelling at site. Pressure dressing applied. Patient maintains SpO2 saturation greater than 95% on room air. Administered Medications: No medications were administered Outcome: 13:59 Discharge ordered by . kdr 14:20 Discharged to home ambulatory. iw 14:20 Condition: good 14:20 Discharge instructions given to patient, Instructed on discharge instructions, follow up and referral plans. Demonstrated understanding of instructions, follow-up care, Prescriptions given X 2. 14:21 Patient left the ED. iw Signatures: Dispatcher [employer] EDMS Blane Garzon MD MD kdr Nnamdi, Mary, RN RN iw Tramaine Hamilton, RN RN bp Fifi Fisher, DONADL RN ca1
--- NOTE | 2019-10-12 14:00 | EDPHYS ---
Physician Documentation [facility] Name: Lety Boyd Age: 29 yrs Sex: Female : 1990 Arrival Date: 10/12/2019 Time: 11:44 Bed 16 Private MD: ED Physician Blane Garzon HPI: 10/11 14:00 This 29 yrs old Female presents to ER via EMS with complaints of Chest Pain. kdr 14:00 The patient or guardian reports chest pain that is located primarily in the substernal kdr area, chest diffusely. The pain does not radiate. Associated signs and symptoms: The patient has no apparent associated signs or symptoms, Pertinent negatives: diaphoresis, dizziness, headache, nausea, shortness of breath, syncope, vomiting. The chest pain is described as aching, burning. Duration: The patient or guardian reports a single episode, that is now resolved. Modifying factors: The symptoms are alleviated by nothing. the symptoms are aggravated by nothing. Severity of pain: At its worst the pain was mild moderate just prior to arrival, in the emergency department the pain has improved markedly. The patient has experienced similar episodes in the past, a few times. The patient has not recently seen a physician. The patient states that she has not had any illicit drugs for the past five weeks and is currently in rehab. Historical: - Allergies: 11:50 No Known Allergies; bp - Home Meds: 11:50 gabapentin oral oral [Active]; Risperdal Oral [Active]; Trazodone Oral [Active]; bp - PMHx: 11:50 Anxiety; Asthma; bp - Immunization history:: Adult Immunizations unknown. - Social history:: Smoking status: Patient reports the use of cigarette tobacco products, unknown amount. ROS: 14:00 Constitutional: Negative for fever, chills, and weight loss, Eyes: Negative for injury, kdr pain, redness, and discharge, ENT: Negative for injury, pain, and discharge, Neck: Negative for injury, pain, and swelling, Respiratory: Negative for shortness of breath, cough, wheezing, and pleuritic chest pain, Abdomen/GI: Negative for abdominal pain, nausea, vomiting, diarrhea, and constipation, Back: Negative for injury and pain, : Negative for injury, bleeding, discharge, and swelling, MS/Extremity: Negative for injury and deformity, Skin: Negative for injury, rash, and discoloration, Neuro: Negative for headache, weakness, numbness, tingling, and seizure activity. Psych: Negative for depression, anxiety, suicide ideation, homicidal ideation, and hallucinations, Allergy/Immunology: Negative for hives, rash, and allergies, Endocrine: Negative for neck swelling, polydipsia, polyuria, polyphagia, and marked weight changes, Hematologic/Lymphatic: Negative for swollen nodes, abnormal bleeding, and unusual bruising. 14:00 Cardiovascular: Positive for chest pain, Negative for edema, orthopnea, palpitations, paroxysmal nocturnal dyspnea, acute changes. Exam: 12:13 ECG was reviewed by the Attending Physician. kdr 14:00 Constitutional: This is a well developed, well nourished patient who is awake, alert, kdr and in no acute distress. Head/Face: Normocephalic, atraumatic. Eyes: Pupils equal round and reactive to light, extra-ocular motions intact. Lids and lashes normal. Conjunctiva and sclera are non-icteric and not injected. Cornea within normal limits. Periorbital areas with no swelling, redness, or edema. Neck: Trachea midline, no thyromegaly or masses palpated, and no cervical lymphadenopathy. Supple, full range of motion without nuchal rigidity, or vertebral point tenderness. No Meningismus. Chest/axilla: Normal chest wall appearance and motion. Nontender with no deformity. No lesions are appreciated. Cardiovascular: Regular rate and rhythm with a normal S1 and S2. No gallops, murmurs, or rubs. Normal PMI, no JVD. No pulse deficits. Respiratory: Lungs have equal breath sounds bilaterally, clear to auscultation and percussion. No rales, rhonchi or wheezes noted. No increased work of breathing, no retractions or nasal flaring. Abdomen/GI: Soft, non-tender, with normal bowel sounds. No distension or tympany. No guarding or rebound. No evidence of tenderness throughout. Back: No spinal tenderness. No costovertebral tenderness. Full range of motion. Skin: Warm, dry with normal turgor. Normal color with no rashes, no lesions, and no evidence of cellulitis. MS/ Extremity: Pulses equal, no cyanosis. Neurovascular intact. Full, normal range of motion. Neuro: Awake and alert, GCS 15, oriented to person, place, time, and situation. Cranial nerves II-XII grossly intact. Motor strength 5/5 in all extremities. Sensory grossly intact. Cerebellar exam normal. Normal gait. Psych: Awake, alert, with orientation to person, place and time. Behavior, mood, and affect are within normal limits. Vital Signs: 11:45 BP 112 / 78; Pulse 67; Resp 17; Temp 97.9; Pulse Ox 100% ; Weight 72.57 kg; bp 12:30 BP 90 / 72; Pulse 72; Resp 16; Pulse Ox 100% ; bp 14:16 BP 101 / 85; Pulse 62; Resp 12; Temp 98; Pulse Ox 100% ; bp MDM: 13:59 Patient medically screened. kdr 14:04 Data reviewed: vital signs, nurses notes, EKG, radiologic studies. kdr 10/11 12:13 Order name: CXR XRAY; Complete Time: 13:59 kdr 10/11 12:13 Order name: EKG - Nurse/Tech; Complete Time: 12:19 kdr EC:13 Rate is 65 beats/min. Rhythm is regular, Normal Sinus Rhythm with No ectopy. QRS [place] kdr is Normal. [place] interval is normal. QRS interval is normal. QT interval is normal. Clinical impression: Normal ECG. Administered Medications: No medications were administered Disposition: 10/12/19 13:59 Discharged to Home. Impression: Chest pain, unspecified. - Condition is Stable. - Discharge Instructions: Nonspecific Chest Pain, [id number]. - Prescriptions for Ibuprofen 600 mg Oral Tablet - take 1 tablet by ORAL route every 6 hours As needed take with food; 30 tablet. Pepcid 20 mg Oral Tablet - take 1 tablet by ORAL route every 12 hours for 10 days; 20 tablet. - Medication Reconciliation Form, Thank You Letter, Antibiotic Education, Prescription Opioid Use form. - Follow up: Private Physician; When: 2 - 3 days; Reason: If symptoms return, Further diagnostic work-up, Recheck today's complaints, Continuance of care, Re-evaluation by your physician. - Problem is new. - Symptoms have improved. Signatures: Dispatcher [employer] EDMS Blane Garzon MD MD kdr Mary Coto RN RN iw Tramaine Hamilton RN RN bp Corrections: (The following items were deleted from the chart) 14:21 13:59 10/12/2019 13:59 Discharged to Home. Impression: Chest pain, unspecified. iw Condition is Stable. Forms are Medication Reconciliation Form, Thank You Letter, Antibiotic Education, Prescription Opioid Use. Follow up: Private Physician; When: 2 - 3 days; Reason: If symptoms return, Further diagnostic work-up, Recheck today's complaints, Continuance of care, Re-evaluation by your physician. Problem is new. Symptoms have improved. kdr
[2019-10-12 14:27] VITALS: O2SAT 100
[2019-10-12 14:29] VITALS: BP 101/85; TEMP 98
--- NOTE | 2019-10-14 06:26 | EKG ---
Test Date: 2019-10-12 Test Time: 11:48:33 [place] Set Up Operator: JORDAN MEASUREMENT RESULTS: Intervals: Rate: 65 OR: 122 QRSD: 100 QT: 408 QTc: 424 [place]: P: 8 OR: 122 QRS: 72 T: 24 INTERPRETIVE STATEMENTS: Normal sinus rhythm Normal ECG No previous ECG available for comparison Electronically Signed On 10-14-19 06:24:17 CDT by Last Berg
== END 2019-10-12 14:21 | disposition home or self-care (01) ==
LOC: ER 11:36
DX: R07.9 Chest pain, unspecified (principal); F41.9 Anxiety disorder, unspecified; Z72.0 Tobacco use
CPT/HCPCS: 71045; 93005; 99285

== ENCOUNTER 2020-04-10 10:53 | Emergency (ER) | payer SELFPAY ==
--- OUTSIDE RECORDS SUMMARY | 2020-04-10 10:56 | XMS REPORT | Clinical Summary ---
:1990 Author Organization [facility] Address [address] [place] [address] Care Team Providers Name Role Phone Unavailable [...] Team Description 09/01/2019 Refill Psychiatry Shelley Mims MD 08/29/2019 - Emergency Emergency Medicine Jeanette Mcintosh [...] Dx); 05/31/2019 MD Zohaib Vagina bleeding after 04/10/2019 Social History Tobacco Use Types Packs/Day Years [...] (165 lb 6.4 oz) 05/30/2019 6:34 PM [employer] Height - - Body Mass Index - - Plan of Treatment Health Maintenance Due Date Last Done Comments Pap Cervical Cancer Scrn 09/04/2011 IMM Influenza Seasonal Feb to July [...] 05/30/2019 10:02 Re sults for this PM [employer] procedure are i n the results section. URINALYSIS STAT 05/30/2019 10:02 Results for this PM [employer] procedure are i n the results section. URINALYSIS STAT 05/30/2019 10:02 Results for this PM [employer] procedure are i n the results section. BMP POC Routine 05/30/2019 9:36 Results for this PM [employer] procedure are i n the results section. CBC STAT 05/30/2019 9:35 Results for this PM [employer] procedure are i n the results section. BETA-HCG, STAT 05/30/2019 9:35 Results for this QUANTITATIVE PM [employer] procedure are i n the results section. CBC/DIFF STAT 05/30/2019 9:35 Results for this PM [employer] procedure are i n the results section. after 04/10/2019 Results 12 LEAD EKG (08/29/2019 11:53 PM CDT) 12 LEAD EKG FOR [facility] SMS Test Date: 2019-08-29 Pat Name: EMANI Hart ment: [id number] Room: Gender: F Locator Specialist: [id number] : 1990 Requested By: JEANETTE MCINTOSH Order Number: [id number] Nikhil camarena MD: Andria Call Measu rements Intervals [place] Rate: 81 P: 59 NH: 102 QRS: 81 QRSD: 89 T: 24 QT: 362 QTc: 421 Interpretive S tatements SINUS RHYTHM WITH SINUS ARRHYTHMIA WITH SHORT NH INTER PAULA NONSPECIFIC ST & T-WAVE ABNORMALITY Reviewed by Electronically Signed On 08-30-2019 5:07:37 CDT by Janusz Call Specimen Performing Organization Address [facility] Phone Number SMS POCT TROPONIN I POC docked device (08/29/2019 11:16 PM CDT)Only the most recent of2 resultswithin the time period is included. Pathologist Sig nature Troponin POC 0.01 0.00 - 0.08 ng/mL [facility] Specimen Blood, venous Performing Organization Address [facility] Phone Number [facility] [address] [place] [address] Urine Drug Screen (08/29/2019 9:58 PM CDT) [...] Urine - Voided, urine Performing Organization Address [facility] Phone Number [facility] [address] [place], [place] [phone] Test (08/29/2019 9:58 PM CDT) Pathologist Sig nature Negative Negative [facility] Specimen Urine Performing Organization Address [facility] Phone Number [facility] [address] [place] [address] 12 LEAD EKG (08/29/2019 9:43 PM CDT) 12 LEAD EKG FOR [facility] Test Date: 2019-08-29 Pat Name: EMANI Hart ment: [id number] Room: Gender: F Locator Specialist: [id number] : 1990 2 Requested By: KYREE Marie Order Number: [id number] Nikhil camarena MD: Andria Call Measu rements Intervals [place] Rate: 76 P: -45 NH: 100 QRS: 79 QRSD: 90 T: 27 QT: 367 QTc: 414 Interpretive S tatements ECTOPIC ATRIAL RHYTHM WITH SHORT NH INTERVAL NONSPECIFIC T-WAVE ABNORMALITY ABNORMAL RHYTHM ECG Reviewed by Electronically Signed On 08-30-2019 5:08:22 CDT by Janusz Call Specimen Performing Organization Address [facility] Phone Number SMS POCT BMP POC docked device (08/29/2019 9:30 PM CDT)Only the most recent of2 resultswithin the time period is included. Pathologist Sig nature Sodium POC 139 136 - 145 mmol/L [facility] Potassium POC 3.6 3.5 - 5.1 mmol/L [facility] Chloride POC 104 98 - [...] LABORATORY Specimen Blood, venous Performing Organization Address [facility] Phone Number [facility] [address] [place] [address] [phone] POCT CREATININE POC docked device (08/29/2019 9:29 PM CDT) Pathologist Sig nature Creatinine POC 0.7 0.6 - 1.3 mg/dL [facility] GFR, Estimated >90 >=90 mL/min/1.73 m2 [facility] Specimen Blood, venous Performing Organization Address City/State/Zipcode Phone Number [facility] [address] [place] [address] [phone] CBC/Diff (08/29/2019 9:22 PM CDT)Only the [...] [facility] Specimen Blood Performing Organization Address [facility]/Zipcode Phone Number [facility] [address] [place] [address] XRAY CHEST 2 VIEWS (08/29/2019 8:45 PM CDT) Specimen Impressions Performed At IMPRESSION: [facility] No acute thoracic abnormality. Dictated By: Graham [...] MD, 08/29/2019 9:46 PM Performing Organization Address [facility]/Zipcode Phone Number [facility] Urinalysis (05/30/2019 10:02 PM [employer]) Pathologist Sig nature Color Yellow Colorless, [place], [facility] Yellow Clarity Hazy (A) Clear [facility] Spec [place], Ur 1.028 1.001 - 1.035 [facility] [...] [facility] Specimen Urine Performing Organization Address [facility] Phone Number [facility] [address] [place], [place] [phone] POCT Urine - (05/30/2019 10:02 PM [employer]) Pathologist Sig nature Control paSS neg Hcg, Quantitative (05/30/2019 9:35 PM [employer]) Pathologist Sig nature hCG, Quantitative <1.0 <5.0 mIU/mL [facility] Specimen Blood Performing Organization Address [facility] Phone Number [facility] [address] [place], [place] [phone] after 04/10/2019 Insurance Payer Benefit Plan / Subscriber ID Effective Dates Phone Addre ss Type Group [employer]LE H[employer]ELLE xxxxxxx 2019- [phone] [id number] [place] [address] [facility] FAM[facility] xxxxxxx 2019-Presen [phone] [id number] [place] [address]
--- OUTSIDE RECORDS SUMMARY | 2020-04-10 10:56 | XMS REPORT | Continuity of Care Document ---
:1990 Author Organization [facility] [place] Care Team Providers Name Role Phone [facility] [place] Unavailable Un available Problems Problem Status Onset Classification Date Comments Sourc e Date Reported Hypokalemia 11/11/2018 [place] 9 City FLANK PAIN Active Memori al 9 [facility] Medications Medication Details Route Status Patient Ordering Order Source Instructions Provider Date potassium 20 mEq = 1 Active chloride 20 tab, PO, 019 [facility] mEq oral BID, # 4 [facility] tablet, tab, 0 extended Refill(s) release potassium 40 mEq, Inactive chloride 20 Route: PO, 019 [facility] mEq oral Drug form: [facility] tablet, ERTAB, extended ONCE, release Dosing Weight 62.273, kg, Priority: STAT, Start date: 11/09/18 17:04:00 CDT, Stop date: 11/09/18 17:04:00 CDT Saline Flush Notes: Inactive 0.9% (Same as: 019 [facility] [place]) Allergies, Adverse Reactions, Alerts No Known Medication Allergies Immunizations No Data Provided for This Section Results Order Name Results Value Reference Date Interpretation Comments Natasha rce Range CHEM PANEL Lipase Lvl 110 73 - 393 11/09 [facility] ELECTROLYTE AGAP 11.8 10.0 - 11/09 MH S 20.0 /2018 [facility] ELECTROLYTE B/C Ratio 8 6 - 25 11/09 [facility] ELECTROLYTE Globulin 4.6 2.7 - 4.2 11/[address] [facility] ELECTROLYTE A/G Ratio 0.8 0.7 - 1.6 11/[address] [facility] ELECTROLYTE Glucose Lvl 117 70 - 99 11/09 [facility] ELECTROLYTE BUN 8 7 - 22 11/[address] [facility] ELECTROLYTE CO2 29 24 - 32 11/[address] [facility] ELECTROLYTE Chloride Lvl 103 95 - 109 11/09 [facility] ELECTROLYTE Potassium 2.8 3.5 - 5.1 11/09 Result S Lvl Comment: [facility] Result(s) called to Evert Moore at 11/09/2018 14:04 by hy. Read back OK. ELECTROLYTE Sodium Lvl 141 135 - 145 11/[address] [facility] ELECTROLYTE AST 28 0 - 37 11/[address] [facility] ELECTROLYTE Creatinine 0.99 0.50 - 11/09 [address].40 [facility] ELECTROLYTE ALT 32 0 - 65 11/[address] [facility] ELECTROLYTE eGFR 78 11/09 Result S Comment: [facility] eGFR is City calculated using the CKD-EPI [...] 8.4 6.4 - 8.4 11/[address] [facility] ELECTROLYTE Bili Total 0.7 0.2 - 1.3 11/[address] [facility] ELECTROLYTE Calcium Lvl 9.7 8.5 - 10.5 11/[address] [facility] ELECTROLYTE Albumin Lvl 3.8 3.5 - 5.0 11/[address] [facility] ELECTROLYTE Alk Phos 79 39 - 136 11/[address] [facility] ENDOCRINOLO S Preg Negative Negative 11/09 GY *NA* /2018 [facility] (11/09/18 1:29 PM) [facility] HEMATOLOGY MPV 9.6 7.4 - 10.4 11/09 [facility] HEMATOLOGY MCHC 33.3 32.0 - 11/[address] [facility] HEMATOLOGY RDW 14.0 11.5 - 11/09 MH 14.5 /2019 [facility] HEMATOLOGY Platelet 249 133 - 450 11/09 /2018 [facility] HEMATOLOGY RBC 5.10 4.20 - 11/09 MH 5.40 /2018 [facility] HEMATOLOGY WBC 7.3 3.7 - 10.4 11/09 /2018 [facility] HEMATOLOGY Hct 40.9 36.0 - 11/09 MH 48.0 /2018 [facility] HEMATOLOGY Hgb 13.6 12.0 - 11/09 MH 16.0 /2018 [facility] HEMATOLOGY MCH 26.7 27.0 - 11/09 MH 31.0 /2018 [facility] HEMATOLOGY MCV 80.3 80.0 - 11/09 MH 98.0 /2018 [facility] HEMATOLOGY Eosinophils 3.7 0.0 - 4.0 11/09 /2018 [facility] HEMATOLOGY Eosinophils 0.3 0.0 - 0.5 11/09 # /2018 [facility] HEMATOLOGY Lymphocytes 1.1 1.0 - 5.5 11/09 # /2018 [facility] HEMATOLOGY Monocytes # 0.8 0.0 - 0.8 11/09 /2018 [facility] HEMATOLOGY Basophils 0.4 0.0 - 1.0 11/09 /2018 [facility] HEMATOLOGY Neutrophils 5.1 1.5 - 8.1 11/09 # /2018 [facility] HEMATOLOGY Lymphocytes 14.7 20.0 - 11/09 40.0 /2018 [facility] HEMATOLOGY Monocytes 11.2 2.0 - 12.0 11/09 /2018 [facility] HEMATOLOGY Segs 70.0 45.0 - 11/[address] [facility] URINE AND UA Ketones Negative 11/09 STOOL /2018 [facility] URINE AND UA WBC 2 0 - 5 11/09 STOOL /2018 [facility] URINE AND Micro? Not Indicated 11/09 STOOL *NA* /2018 [facility] (11/09/18 1:29 PM) [facility] URINE AND UA Bacteria Occasional None Seen 11/09 STOOL /HPF /HPF /2018 [facility] URINE AND UA Sq Epi Moderate Few /LPF 11/09 STOOL /LPF /2018 [facility] URINE AND UA 2.0 0.1 - 1.0 11/09 STOOL Urobilinogen /2018 [facility] URINE AND UA Nitrite Negative Negative 11/09 [facility] (11/09/18 1:29 PM) /2018 [facility] URINE AND UA Leuk Est Negative Negative 11/09 [facility] (11/09/18 1:29 PM) /2018 [facility] URINE AND UA Blood Negative Negative 11/09 [facility] (11/09/18 1:29 PM) /2018 [facility] URINE AND UA Protein Negative Negative 11/09 STOOL mg/dL mg/dL /2018 [facility] URINE AND UA Glucose Negative Negative 11/09 STOOL mg/dL mg/dL /2018 [facility] URINE AND UA Bili Negative Negative 11/09 STOOL *NA* /2018 [facility] (11/09/18 1:29 PM) [facility] URINE AND UA pH 8.0 5.0 - 8.0 11/09 STOOL /2018 [facility] URINE AND UA Color Light Yellow Yellow 11/09 STOOL *NA* /2018 [facility] (11/09/18 1:29 PM) [facility] URINE AND UA Turbidity Clear Clear 11/09 [facility] (11/09/18 1:29 PM) /2018 [facility] URINE AND UA Spec Grav 1.004 <=1.030 11/09 STOOL /2018 [facility] Pathology Reports No Data Provided for This Section Diagnostic Reports No Data Provided for This Section Consultation Notes No Data Provided for This Section Discharge Summaries No Data Provided for This Section History and Physicals No Data Provided for This Section Vital Signs Vital Sign Value Date Comments Source Respitory Rate 17 11/10/2018 [facility] C ity Temperature Oral (F) 98.9 F 11/10/2018 [facility] Heart Rate 84 11/10/2018 [facility] Cit y Systolic (mm Hg) 118 11/10/2018 [facility] Diastolic (mm Hg) 68 11/10/2018 [facility] Heart Rate 82 11/09/2018 [facility] Cit y Respitory Rate 18 11/09/2018 [facility] C ity Systolic (mm Hg) 120 11/09/2018 [facility] Diastolic (mm Hg) 71 11/09/2018 [facility] Heart Rate 72 11/09/2018 [facility] Cit y Systolic (mm Hg) 115 11/09/2018 [facility] Diastolic (mm Hg) 67 11/09/2018 [facility] Respitory Rate 18 11/09/2018 [facility] C ity Weight 62.273 11/09/2018 [facility] Cit y Temperature Oral (F) 99.7 F 11/09/2018 [facility] Height 170.18 cm 11/09/2018 [facility] Cit y BMI Calculated 21.5 11/09/2018 [facility] C ity Encounters Location Location Encounter Encounter Reason Attending ADM DC Stat us Source Details Type Number For Provider Date Date Visit [facility] Emergency [id number] Kumar Evans [facility]09 [facility] Procedures No Data Provided for This Section Assessment and Plan No Data Provided for This Section Plan of Care No Data Provided for This Section Social History Social History Date Source Social History TypeResponse 11/09/2018 [facility] Smoking Status Unknown if ever smoked; Concerns [...]
--- OUTSIDE RECORDS SUMMARY | 2020-04-10 10:57 | XMS REPORT | Continuity of Care Document ---
:1990 [facility] [address] [place] [address] Care Team Providers Name Role Phone Prasanna ADAIR, E Attending Clinician Nima ADAIR Attending Clinician Jamal ADAIR D Attending Clinician Rickey Evans Attending Clinician Payers Payer Name Policy Type Policy Number Effective Date Expiration Date Niya giles HOMELESS xxxxxxx 2019 2020 Larios GRANTHOMELESS 00:00:00 23:59:59 Health [id number]/[id number] [place] [address] [facility] xxxxxxx 2019 Larios PLANNING 00:00:00 [facility] [phone] [address], [place] [address] Problems Condition Condition Condition Status Onset Resolution Last Treating Co mments Source Name Details Category Date Date Treatment Clinician Date FLANK PAIN Diagnosis Active 2019-07-14 Memoria 11-09 14:05:00 l FLANK 00:00: [place] PAIN 00 Active 11/09/2018 [facility] [place] Disease Active Mode pool care in care in 07-03 Health third third 00:00: trimester trimester 00 Polyhydram Polyhydram Disease Active 2016-05 H arris nios nios 2-14 Health affecting affecting 00:00: 00 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 [facility] dates 2-14 Health 00:00: 00 Marginal Marginal Disease Active 2016-05 Mode s placenta placenta -17 Health previa previa 00:00: 00 Bipolar Bipolar Disease Active [place] disorder disorder Health Psychosis Psychosis Disease Active [facility] Amphetamin Amphetamin Disease Active [facility] use e use Health disorder, disorder, severe, severe, dependence dependence Alcohol Alcohol Disease Active [place] use use Health disorder, disorder, moderate, moderate, dependence dependence Chest pain Chest pain Disease Active H arr Health Hypokalemi Problem 2018-2018-11-11 2018-11-11 Memoria a 18 22:37:04 22:37:04 l 17:00: [place] Hypokalemi 00 a 11/09/2018 11/11/2018 [facility] [place] Allergies, Adverse Reactions, Alerts This patient has no known allergies or adverse reactions. Social History Social Habit Start Date Stop Date Quantity Comments Source History [facility] Alcohol Std Drinks History [facility] Alcohol Binge Sex Assigned At [facility] Alcohol intake 2019-08-29 2019-08-[address] [facility] lt 00:00:00 00:00:00 non-drinker (finding) History [facility] 2019-08-29 2019-08-29 1 [facility] Alcohol Frequency 00:00:00 00:00:00 Smoking Status Start Date Stop Date Source Current every day smoker 2019-08-29 00:00:00 [facility] Medications Ordered Filled Start Stop Current Ordering Indication Dosage Frequency Signature Comments Components Source Medication Medication Date Date Medication? Clinician (SIG) Name Name risperiDONE Yes Unspecified 1mg Q.5D Take 1 [place] (RISPERDAL) 08-[address] [facility] 1 mg tablet 00:00: (affective) mouth 2 00 disorder times daily. gabapentin Yes Unspecified 300mg Take 1 [place] (NEURONTIN) 08-31 mood capsule by [facility] 300 mg 00:00: (affective) mouth 3 capsule 00 disorder times daily. risperiDONE 2019- No Unspecified 1mg Q.5D Take 1 [place] (RISPERDAL) 08-28 mood tablet by [facility] 1 mg tablet 00:00: 00:00 (affective) mouth 2 00 :00 disorder times daily for 14 days. gabapentin 2019- Unspecified 300mg Take 1 Ric (NEURONTIN) 08-28 mood capsule by Shannan matute 300 mg 00:00: 00:00 (affective) mouth 3 capsule 00 :00 disorder times daily for 14 days. potassium Yes 20 mEq = 1 Me moria chloride 20 -19 tab, PO, l mEq oral 00:14: BID, # 4 Evelin nn tablet, 00 tab, 0 extended Refill(s) release potassium No 40 mEq, Memor ia chloride 20 6-18 Route: PO, l mEq oral 22:04: Drug form: Her crowder tablet, 00 ERTAB, extended ONCE, release Dosing Weight 62.273, kg, Priority: STAT, Start date: 11/09/18 17:04:00 CDT, Stop date: 11/09/18 17:04:00 CDT Saline No Notes: Memoria Flush 0.9% 18 (Same as: l 18:14: BD [place] 00 Posiflush) Vital Signs Vital Name Observation Time Observation Value Comments Source Systolic blood 2019-08-29 19:32:00 130 mm[Hg] [facility] pressure Diastolic blood 2019-08-29 19:32:00 87 mm[Hg] Mode s Health pressure Heart rate 2019-08-29 19:32:00 90 /min [facility] Body temperature 2019-08-29 19:32:00 36.78 Carleen [facility] Respiratory rate 2019-08-29 19:32:00 18 /min [facility] Oxygen saturation in 2019-08-29 19:32:00 100 /min [facility] Arterial blood by Pulse oximetry Body weight 2019-05-30 18:34:[address] [facility] Respitory Rate 2018-11-10 00:23:00 Barbori al Luis Temperature Oral (F) 2018-11-10 00:23:00 98.9 F [facility] [place] Heart Rate 2018-11-10 00:23:00 [facility] Systolic (mm Hg) 2018-11-10 00:23:00 Paxton riakaylie [place] Diastolic (mm Hg) 2018-11-10 00:23:00 Mem orial [place] Heart Rate 2018-11-09 22:33:00 [facility] Respitory Rate 2018-11-09 22:33:00 Memori al Luis Systolic (mm Hg) 2018-11-09 22:33:00 Paxton rial Luis Diastolic (mm Hg) 2018-11-09 22:33:00 Mem orial Luis Heart Rate 2018-11-09 21:05:00 [facility] Systolic (mm Hg) 2018-11-09 21:05:00 Paxton rial [place] Diastolic (mm Hg) 2018-11-09 21:05:00 Mem orial [place] Respitory Rate 2018-11-09 21:05:00 Pinky al Luis Weight 2018-11-09 18:03:00 [facility] [place] Temperature Oral (F) 2018-11-09 18:03:00 99.7 F [facility] [place] Height 2018-11-09 18:03:00 [facility] Calculated 2018-11-09 18:03:00 Memghazal al [place] Procedures Procedure Date / Time Performed Performing Clinician [facility] e ECHG EKG PROC 12 LEAD EKG; 2019-08-29 23:53:58 Norma Silva I [facility] TRACING ONLY TROPONIN I POC 2019-08-29 23:16:00 [facility] 2019-08-29 21:58:00 Kyree Diehl [facility] URINE DRUG SCREEN 2019-08-29 21:58:00 [facility] LEAD EKG; 2019-08-29 21:43:01 Kyree Diehl [facility] TRACING ONLY BMP POC 2019-08-29 21:30:00 Unknown, Provider [facility] CREATININE POC 2019-08-29 21:29:00 Unknown, Provider [facility] TROPONIN I POC 2019-08-29 21:26:00 Unknown, Provider [facility] CBC/DIFF 2019-08-29 21:22:00 Kyree Diehl [facility] CBC 2019-08-29 21:22:00 Kyree Diehl [facility] XRAY CHEST 2 VIEWS 2019-08-29 20:45:00 Norma Silva I [facility] URINALYSIS 2019-05-30 22:02:00 Emani Guzman h URINALYSIS 2019-05-30 22:02:00 Emani Guzman POCT URINE DIPSTICK - 2019-05-30 22:02:00 Emani Guzman [facility] BMP POC 2019-05-30 21:36:00 Unknown, Provider Ric patricio lt CBC/DIFF 2019-05-30 21:35:00 Emani Guzman h BETA-HCG, QUANTITATIVE 2019-05-30 21:35:00 Emani Guzman [facility] CBC 2019-05-30 21:35:00 Emani Guzman Plan of Care Planned Activity Planned Date Details Comments Source Future Scheduled Test 2020-02-23 00:00:00 IMM Influenza [facility] Seasonal Feb to July (>/= 19 yrs) [code = IMM Influenza Seasonal Feb to July (>/= 19 yrs)] Future Scheduled Test 2011-09-04 00:00:00 Screening for [facility] malignant neoplasm of cervix (procedure) [code = 129597663] Encounters Start End Encounter Admission Attending Care Care Encounter Source Date/Time Date/Time Type Type Clinicians Facility Department ID 2020-03-27 2020-03-30 Outpatient [facility] H[facility] [id number] 22:16:00 17:25:00 11 2019-08-07 2019-08-07 Outpatient E [facility] [id number] [facility] 09:55:00 09:55:00 kaylie Pate l 2019-04-26 2019-04-26 Emergency E [facility] [id number] [place] 21:05:00 21:05:00 [facility] 2018-11-09 2018-11-09 Outpatient EvansKumar [facility] [id number] 13:02:17 19:59:00 Rickey Sumit 00 2018-11-09 2018-11-09 Emergency E [facility] [id number] [place] 13:02:00 13:02:00 [facility]lie [facility] 2017-07-03 2017-07-03 Outpatient [facility] [id number] [place] 09:10:28 09:10:28 Health 2017-05-04 2017-05-04 Outpatient [facility] [id number] [place] 12:29:09 12:29:09 Health Results Test Description Test Time Test Comments Results Result Sourc e Comments 12 LEAD EKG 12 LEAD EKG FOR [facility] [place] [facility] 05:08:27 [facility] Test Date: 3594-27-47Kty Name: EMANI CARRENO Department: 5520Patient ID: [id number] Room: Gender: F [employer] Assembly: [id number]: 1990 Requested By: KYREE Mensah Number: [id number] Reading MD: Andria Call MeasurementsIntervals [place] Rate: 76 P: -45PR: 100 QRS: 79QRSD: 90 T: 27QT: 367 QTc: 414 Interpretive StatementsECTOPIC ATRIAL RHYTHM WITH SHORT LA INTERVALNONSPECIFIC T-WAVE ABNORMALITYABNORMAL RHYTHM ECGReviewed by Electron ically Signed On 08-30-2019 5:08:22 CDT by Andria HiddenbedmagdaQuantaSolNiya 12 LEAD EKG 12 LEAD EKG FOR CHP Jessica [facility] 7 [place] [facility] 05:07:40 [facility] Test Date: 1958-28-65Otx Name: EMANI CARRENO Department: 5520Patient ID: [id number] Room: Gender: F [employer] Assembly: [id number]: 1990 Requested By: JEANETTE Hernandez Number: [id number] Reading MD: Andria Call MeasurementsIntervals [place] Rate: 81 P: 59PR: 102 QRS: 81QRSD: 89 T: 24QT: 362 QTc: 421 Interpretive StatementsSINUS RHYTHM WITH SINUS ARRHYTHMIA WITH SHORT LA INTERVALNONSPECIFIC ST & T-WAVE ABNORMALITYReviewed by Electron ically Signed On 08-30-2019 5:07:37 CDT by Red LaGoon Urine Drug Screen 2019-08-29 23:38:00 Test Item Value Reference Range Interpretation Comme nts Opiate, Ur (test code = 14012-6) Negative Negative Calibrated Standard: Morphine Positive if uri ne level > or = 300 ng/dL Amphetamine (test code = Positive Negative A Ca librated Standard: 76527-4) D-Methamphetami ne Positive if urine level > o r = 1000 ng/mL Barbiturate (test code = Negative Negative Ca librated Standard: 44316-6) Secobarbital Po sitive if urine level is > or = 200 ng/mL Benzodiazepine (test code = Negative Negative Calibrated Standard: 91187-6) Lormethazepam P ositive if urine level is > or = 200 ng/mL Cocaine (test code = 55366-1) Negative Negative Calibrated Standard: Benzoylecgonine Positive if urine level > or = 30 0 ng/dL PCP (test code = 05291-2) Negative Negative C alibrated Standard: Phencyclidine P ositive if urine level > or = 25 ng/dL Cannabinoid (test code = Negative Negative Ca librated Standard: 11 86787-0) nor-delta(9)-TH C carboxylic acid Positive if uri ne level > or = 50 ng/mL Lab Interpretation (test code = Abnormal 64842-4) [facility] TROPONIN I POC docked [id number] 23:29:00 Test Item Value Reference Range Interpretation Comments Troponin POC (test code = 0.01 ng/mL 0-0.08 19789739) Lab Interpretation (test code = Normal 53313-3) [facility]regnancy [id number] 22:57:00 Test Item Value Reference Range Interpretation Comments (test code = 21754005) Negative Negative Lab Interpretation (test code = Normal 79759-5) [facility]/Poth2945-44-78 22:02:00 Test Item Value Reference Range Interpretation [...] 32.2 g/dL 32-36 RDW (test code = 76077-2) 41.8 fL 36.4-46.3 Platelet (test code = 777-3) 172 K/uL 150-400 Mean Platelet Volume (test code = 11.8 fL 9.4-12.4 17156-5) Percent NRBC (test code = 58491560) 0.0 % Neutrophil (test code = 770-8) 63.7 % 34-70 Lymphs (test code = 736-9) 27.9 % 20-50 Monocytes (test code = 5905-5) 7.5 % 5-12 Eos (test code = 713-8) 0.3 % 0.7-5 L Basos (test code = 706-2) 0.5 % 0.1-1.2 Immature Granulocytes (test code = 0.1 % 0-0.5 68574193) Neutrophils (Absolute) (test code = 4.78 K/uL 1.56-6.13 02117199) Lymphs (Absolute) (test code = 2.09 K/uL 1.18-3.74 29979722) Monocytes(Absolute) (test code = 0.56 K/uL 0.24-0.36 H 93629940) Eos (Absolute) (test code = 0.02 K/uL 0.04-0.36 L 19016575) Baso (Absolute) (test code = 0.04 K/uL 0.01-0.08 75049899) Immature Grans (Abs) (test code = 0.01 K/uL 0-0.03 27153001) Absolute NRBC (test code = 0.00 K/uL 03914668) Lab Interpretation (test code = Abnormal 75727-9) [facility] CHEST 2 [id number] 21:46:52IMPRESSION: No acute thoracic abnormality. Dictated By: [...] report.Signed By: Justina Magana MD, 08/29/2019 9:46 [facility] POCT BMP POC docked [id number] 21:36:00 Test Item Value Reference Range Interpretation Comments Sodium POC (test code = 66231015) 139 mmol/L 136-145 Potassium POC (test code = 3.6 mmol/L 3.5-5.1 87641025) Chloride POC (test code = 104 mmol/L 98-107 96744043) TCO2 POC (test code = 96857882) 26 mmol/L 21-32 Urea Nitrogen POC (test code = 11 mg/dL 7-18 95477092) Glucose POC (test code = 20437725) 88 mg/dL 74-106 Hemoglobin POC (test code = 14.6 g/dL 12-16 00544548) Hematocrit POC (test code = 43.0 % 37-47 19365644) Lab Interpretation (test code = Normal 59058-4) [facility] CREATININE POC docked [id number] 21:33:00 Test Item Value Reference Range Interpretation Comments Creatinine POC (test code = 0.7 mg/dL 0.6-1.3 32988609) GFR, Estimated (test code = >90 >=90 mL/min/1.73 m2 88798312) Lab Interpretation (test code = Normal 82215-0) [facility] Hospital[facility], Rpprrhqccquy5534-88-60 23:09:00 Test Item Value Reference Range Interpretation Comments hCG, Quantitative (test code = <1.0 <5.0 mIU/mL 74869675) Lab Interpretation (test code = Normal 27686-2) [facility] HospitalKpsrevKgcqcxsqvl4141-07-23 23:06:00 Test Item Value Reference Range Interpretation Comments Color (test code = 82624988) Yellow Colorless, Straw, Yellow Clarity (test code = Hazy Clear A 41525920) Spec [place], Ur (test code = 1.028 1.001-1.035 07335061) pH, Ur (test code = 14333165) 6.0 5.0-8.0 Protein, Ur (test code = 2+ Negative mg/dL A 33918276) Glucose, Ur (test code = Negative Negative mg/dL 24551509) Ketone, Ur (test code = Negative Negative mg/dL 44907404) Bilirubin, Ur (test code = Negative Negative mg/dL 62323447) Nitrite, Ur (test code = Negative Negative 44814972) Leukocyte (test code = Negative Negative mg/dL 00967441) Blood, Ur (test code = 3+ Negative mg/dL A 49094521) RBC (test code = 60516711) 92 0- 4 /HPF H WBC (test code = 54440020) 2 0- 5 /HPF Epithelial Cell (test code = 20 <=1 /HPF H 27874566) Mucous (test code = 50885377) Present None seen /HPF A Urobilinogen, Ur (test code = <1.0 <1.0 EU/dL 30591172) Lab Interpretation (test code Abnormal = 28111-8) [facility] Urine - Ruvecrelm3892-62-95 22:02:00 Test Item Value Reference Range Interpretation Comments Control (test code = 7172) paSS (test code = 7173) neg Lab Interpretation (test code = Normal 03946-7) [facility] [id number] 18:29:18343Oqvyurow HermannELECTROLYTES 2018-11-09 18:29:0011.8[facility] KtqcqjgNYAYXPMWOKDB2478-92-62 18:29:00 Test Item Value Reference Range Interpretation Comments B/C Ratio (test code = B/C Ratio) 8 1 6-25 [facility] HbvxnujUWSLSGHJLKDO3009-07-73 18:29:004.6[facility] HermannELECTROLYTES 2018-11-09 18:29:00 Test Item Value Reference Range Interpretation Comments A/G Ratio (test code = A/G Ratio) 0.8 1 0.7-1.6 [facility] JtzsamlLULGKJAUXTEJ4147-12-77 18:29:72451Oitqwyet HermannELECTROLYTES 2018-11-09 18:29:008[facility] JfbqecpQTXIIVXAGYRK3540-06-11 18:29:0029[facility] BgrejlaOPQJVNPMVNLF2902-56-77 18:29:31756Rfnjbzhc EonkgeeTCQFBRUUMROP2541-82-36 18:29:002.8[facility] MyahmrtRRVFRCCJMNCV3719-27-74 18:29:05607Ejnzhxmm Luis PAQLGTNXJWFN2740-90-77 18:29:0028[facility] DbwnufhOOSFIYKMDNIA2660-21-58 18:29:00 0.99[facility] UtbalayRSARVTRSQREC9737-92-29 18:29:0032[facility] [place] RBBHHDCGPHZG6029-59-58 18:29:0078[facility] GmxheieMMAVOIZBBZMS9058-24-76 18:29:00 8.4[facility] ReigblcXFNAAXWGUNTN7535-44-70 18:29:000.7[facility] Luis VZMYKOPMOKYO0967-86-79 18:29:009.7[facility] WafkrrvEMXHJVCYWDFX4226-28-25 18:29:003.8[facility] QkhqgdgIMPRYVAIJQAY0531-80-20 18:29:0079[facility] [place] KDGRSRFVTYIOX1333-90-66 18:29:00Negative *NA*(11/09/18 1:29 PM)[facility] Luis KBEUIAIGTN3093-21-42 18:29:009.6[facility] EnxazujZGYTLSNEOQ8757-50-27 18:29:00 33.3[facility] NimltmjLPKQYUDFOD3993-56-82 18:29:0014.0[facility] HermannHEMATOLOGY 2018-11-09 18:29:58848Pmxdgzcn QqpiscmEYNGLGEWHW4180-71-16 18:29:005.10[facility] HaefpumYOKVWBTSNK9138-33-92 18:29:007.3[facility] ZdwbqfjDQNTUEJVAQ3065-52-86 18:29:0040.9[facility] UkzncozELVCIFSSBC3720-33-03 18:29:0013.6[facility] Luis FYIGFAOMBE3126-10-17 18:29:00 Test Item Value Reference Range Interpretation Comments MCH (test code = MCH) 26.7 pg 27.0-31.0 [facility] PixssqcXHNPOBJYBF8877-68-07 18:29:0080.3[facility] HermannHEMATOLOGY 2018-11-09 18:29:003.7[facility] AwaqzqhZWJFTEJRMV1207-56-33 18:29:000.3[facility] CoynwxoBGRESWFUZG7589-57-37 18:29:001.1[facility] SbzbkddTMDHSENQAA9837-77-53 18:29:000.8[facility] FexlklrNQAQGWPZLS8961-69-50 18:29:000.4[facility] Luis FKSHGPDKIH4945-36-80 18:29:005.1[facility] HilceeoRPGOSOQOBF3367-03-30 18:29:00 14.7[facility] ZnryakiEZVLPOYQVS3887-32-76 18:29:0011.2[facility] HermannHEMATOLOGY 2018-11-09 18:29:0070.0[facility] HermannURINE AND BVEFT2545-23-40 18:29:002 [facility] AND JACGO4853-54-10 18:29:00Not Indicated *NA*(11/09/18 1:29 PM)[facility]annURINE AND YYDOI6868-12-50 18:29:002.0[facility] URINE AND VUKKJ7534-66-90 18:29:00Negative (11/09/18 1:29 PM)[facility] URINE AND JISIU8183-74-79 18:29:00Negative (11/09/18 1:29 PM)[facility] URINE AND ALSIE3552-72-28 18:29:00Negative (11/09/18 1:29 PM)[facility] URINE AND [id number] 18:29:00Negative *NA*(11/09/18 1:29 PM)[facility] URINE AND [id number] 18:29:00 Test Item Value Reference Range Interpretation Comments UA pH (test code = UA pH) 8.0 1 5.0-8.0 [facility] MDDWH4626-31-90 18:29:00Light Yellow *NA*(11/09/18 1:29 PM)[facility] ZQJJV1943-47-02 18:29:00Clear (11/09/18 1:29 PM) [facility] NSARR5954-51-36 18:29:00 Test Item Value Reference Range Interpretation Comments UA Spec Grav (test code = UA Spec 1.004 1 Grav) Jose Smith
--- NOTE | 2020-04-10 11:52 | EDPHYS ---
Physician Documentation [facility] Name: Lety Boyd Age: 29 yrs Sex: Female : 1990 Arrival Date: 04/10/2020 Time: 10:56 Bed 23 Private MD: ED Physician Blane Garzon HPI: 04/10 15:19 This 29 yrs old Female presents to ER via Ambulatory with complaints of kdr Headache, Toothache. 15:19 The patient presents with pain, swelling. The problem is located in the lower left kdr third molar and lower left second molar. Onset: The symptoms/episode began/occurred gradually, 3 day(s) ago. Duration: The symptoms are continuous, and are steadily getting worse. Modifying factors: The symptoms are alleviated by nothing, the symptoms are aggravated by air, chewing, food. Associated signs and symptoms: Pertinent positives: pain, Headache - migraine. Severity of symptoms: At their worst the symptoms were mild, in the emergency department the symptoms are unchanged. The patient has experienced similar episodes in the past, multiple times. The patient has not recently seen a physician. 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 - Social history:: Smoking status: Patient reports the use of cigarette tobacco products, denies chronic smoking, but will smoke occasionally. ROS: 15:19 Constitutional: Negative for fever, chills, and weight loss, Eyes: Negative for injury, kdr pain, redness, and discharge, Neck: Negative for injury, pain, and swelling, Cardiovascular: Negative for chest pain, palpitations, and edema, Respiratory: Negative for shortness of breath, cough, wheezing, and pleuritic chest pain, Abdomen/GI: Negative for abdominal pain, nausea, vomiting, diarrhea, and constipation, Back: Negative for injury and pain, : Negative for injury, bleeding, discharge, and swelling, MS/Extremity: Negative for injury and deformity, Skin: Negative for injury, rash, and discoloration, Neuro: Negative for headache, weakness, numbness, tingling, and seizure activity. Psych: Negative for depression, anxiety, suicide ideation, homicidal ideation, and hallucinations, Allergy/Immunology: Negative for hives, rash, and allergies, Endocrine: Negative for neck swelling, polydipsia, polyuria, polyphagia, and marked weight changes, Hematologic/Lymphatic: Negative for swollen nodes, abnormal bleeding, and unusual bruising. 15:19 ENT: Positive for dental pain, Gum pain of the lower left third molar and lower left second molar. Exam: 15:19 Constitutional: This is a well developed, well nourished patient who is awake, alert, kdr and in no acute distress. Head/Face: Normocephalic, atraumatic. Eyes: Pupils equal round and reactive to light, extra-ocular motions intact. Lids and lashes normal. Conjunctiva and sclera are non-icteric and not injected. Cornea within normal limits. Periorbital areas with no swelling, redness, or edema. Neck: Trachea midline, no thyromegaly or masses palpated, and no cervical lymphadenopathy. Supple, full range of motion without nuchal rigidity, or vertebral point tenderness. No Meningismus. Chest/axilla: Normal chest wall appearance and motion. Nontender with no deformity. No lesions are appreciated. 15:19 ENT: Dental exam: dental caries, that is moderate, diffusely, fractured teeth are noted, specifically the lower left third molar (#17) and lower left second molar (#18). Vital Signs: 11:11 Resp 17; Weight 63.5 kg; Height 5 ft. 7 in. (170.18 cm); Pain 8/10; ss 11:13 BP 115 / 93; Pulse 60; Temp 98.9(TE); Pulse Ox 100% ; ss 11:11 Body Mass Index 21.93 (63.50 kg, 170.18 cm) ss MDM: 11:51 Patient medically screened. kdr 15:19 Data reviewed: vital signs, nurses notes. Counseling: I had a detailed discussion with kdr the patient and/or guardian regarding: the historical points, exam findings, and any diagnostic results supporting the discharge/admit diagnosis, the need for outpatient follow up. Administered Medications: 12:06 Drug: Amoxicillin 500 mg Route: PO; em 12:10 Follow up: Response: Medication administered at discharge. em 12:06 Drug: Motrin 800 mg Route: PO; em 12:10 Follow up: Response: Medication administered at discharge. em Disposition: 04/10/20 11:51 Discharged to Home. Impression: Dental caries, Headache. - Condition is Stable. - Discharge Instructions: General Headache Without Cause, Dental Pain, Teqr-tn-Wpqw, Migraine Headache, Ftjx-rj-Ycql, Preventive Dental Care, Adult. - Prescriptions for Amoxicillin 500 mg Oral Capsule - take 1 capsule by ORAL route every 8 hours for 10 days; 30 tablet. Diclofenac Sodium 75 mg Oral Tablet, Delayed Release (E.C.) - take 1 tablet by ORAL route 2 times per day; 12 tablet. - Medication Reconciliation Form, Thank You Letter form. - Follow up: Private Physician; When: 2 - 3 days; Reason: If symptoms return, Further diagnostic work-up, Recheck today's complaints, Continuance of care, Re-evaluation by your physician. - Problem is an acute exacerbation. - Symptoms have improved. Signatures: Blane Garzon MD MD [facility] Jaylen Jacob RN RN Antonieta Jackson RN RN ss Corrections: (The following items were deleted from the chart) 12:11 11:51 04/10/2020 11:51 Discharged to Home. Impression: Dental caries; Headache. em Condition is Stable. Forms are Medication Reconciliation Form, Thank You Letter, Antibiotic Education, Prescription Opioid Use. Follow up: Private Physician; When: 2 - 3 days; Reason: If symptoms return, Further diagnostic work-up, Recheck today's complaints, Continuance of care, Re-evaluation by your physician. Problem is an acute exacerbation. Symptoms have improved. kdr
--- NOTE | 2020-04-10 11:52 | ER ---
Nurse's Notes [facility] Name: Lety Boyd Age: 29 yrs Sex: Female : 1990 Arrival Date: 04/10/2020 Time: 10:56 Bed 23 Private MD: Diagnosis: Dental caries;Headache Presentation: 04/10 11:11 Chief complaint: Patient states: dental pain "for a while", that has been getting worse ss over the past two days. Migraine that began this morning. Coronavirus screen: Client denies travel out of the [place] in the last 14 days. Ebola Screen: Patient denies exposure to infectious person. Patient denies travel to an Ebola-affected area in the 21 days before illness onset. Initial Sepsis Screen: Does the patient meet any 2 criteria? No. Patient's initial sepsis screen is negative. Does the patient have a suspected source of infection? No. Patient's initial sepsis screen is negative. Risk Assessment: Do you want to hurt yourself or someone else? Patient reports no desire to harm self or others. Onset of symptoms is unknown. 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 - Social history:: Smoking status: Patient reports the use of cigarette tobacco products, denies chronic smoking, but will smoke occasionally. Screenin:28 Abuse screen: Denies threats or abuse. Nutritional screening: No deficits noted. em Tuberculosis screening: No symptoms or risk factors identified. Fall Risk None identified. Assessment: 12:00 General: Appears in no apparent distress. uncomfortable. Pain: Complains of pain in em right submandibular area and left submandibular area Pain currently is 8 out of 10 on a pain scale. Pain began off and on for a few days. Neuro: Level of Consciousness is awake, alert, obeys commands, Oriented to person, place, time, situation, Appropriate for age Reports headache. Cardiovascular: Capillary refill < 3 seconds Patient's skin is warm and dry. Respiratory: Airway is patent Respiratory effort is even, unlabored, Respiratory pattern is regular, symmetrical. Derm: Skin is intact, is healthy with good turgor, Skin is pink, warm \\T\\ dry. Musculoskeletal: Capillary refill < 3 seconds, Range of motion: intact in all extremities. Vital Signs: 11:11 Resp 17; Weight 63.5 kg; Height 5 ft. 7 in. (170.18 cm); Pain 8/10; ss 11:13 BP 115 / 93; Pulse 60; Temp 98.9(TE); Pulse Ox 100% ; ss 11:11 Body Mass Index 21.93 (63.50 kg, 170.18 cm) ED Course: 10:56 Patient arrived in ED. mr 11:12 Triage completed. ss 11:13 Arm band placed on right wrist. ss 11:23 Blane Garzon MD is Attending Physician. kdr 11:28 Jaylen Jacob, DONALD is Primary Nurse. em 11:28 Patient has correct armband on for positive identification. Bed in low position. Call em light in reach. 12:09 No provider procedures requiring assistance completed. em Administered Medications: 12:06 Drug: Amoxicillin 500 mg Route: PO; em 12:10 Follow up: Response: Medication administered at discharge. em 12:06 Drug: Motrin 800 mg Route: PO; em 12:10 Follow up: Response: Medication administered at discharge. em Outcome: 11:51 Discharge ordered by . kdr 12:11 Patient left the ED. em Signatures: Blane Garzon MD MD [facility] Fatuma mr Jaylen Jacob, DONALD BENNETT Antonieta Jackson RN RN
[2020-04-10] MEDS ORDERED: IBUPROFEN 400 MG TAB ONE (12:14)
[2020-04-10] MEDS ORDERED: AMOXICILLIN TRIHYDR 250 MG CAP ONE (12:14)
[2020-04-10 17:22] VITALS: BP 115/93; TEMP 98.9; O2SAT 100
== END 2020-04-10 12:11 | disposition home or self-care (01) ==
LOC: ER 10:53
DX: K02.9 Dental caries, unspecified (principal); F41.9 Anxiety disorder, unspecified; F17.210 Nicotine dependence, cigarettes, uncomplicated
CPT/HCPCS: 99282

== ENCOUNTER 2020-04-12 17:17 | Emergency (ER) | payer SELFPAY ==
--- OUTSIDE RECORDS SUMMARY | 2020-04-12 17:19 | XMS REPORT | Clinical Summary ---
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 URINALYSIS STAT 05/30/2019 10:02 Results for this PM CITY MAINTENANCE MANAGER procedure are i n the results section. URINALYSIS STAT 05/30/2019 10:02 Results for this PM CITY MAINTENANCE MANAGER procedure are i n the results section. BMP POC Routine 05/30/2019 9:36 Results for this PM CITY MAINTENANCE MANAGER procedure are i n the results section. CBC STAT 05/30/2019 9:35 Results for this PM CITY MAINTENANCE MANAGER procedure are i n the results section. BETA-HCG, STAT 05/30/2019 9:35 Results for this QUANTITATIVE PM CITY MAINTENANCE MANAGER procedure are i n the results section. CBC/DIFF STAT 05/30/2019 9:35 Results for this PM CITY MAINTENANCE MANAGER procedure are i n the results section. after 04/12/2019 Results 12 LEAD EKG (08/29/2019 11:53 PM CDT) 12 LEAD EKG FOR [facility] SMS Test Date: 2019-08-29 Pat Name: EMANI Hart ment: [id number] Room: Gender: F Activities Counselor: [id number] : 1990 Requested By: JEANETTE MCINTOSH Order Number: [id number] Nikhil camarena MD: Andria Call Measu rements Intervals [place] Rate: 81 P: 59 MT: 102 QRS: 81 QRSD: 89 T: 24 QT: 362 QTc: 421 Interpretive S tatements SINUS RHYTHM WITH SINUS ARRHYTHMIA WITH SHORT MT INTER PAULA NONSPECIFIC ST & T-WAVE ABNORMALITY Reviewed by Electronically Signed On 08-30-2019 5:07:37 CDT by Janusz Call Specimen Performing Organization Address [facility] [place] Phone Number SMS POCT TROPONIN I POC docked device (08/29/2019 11:16 PM CDT)Only the most recent of2 resultswithin the time period is included. Pathologist Sig nature Troponin POC 0.01 0.00 - 0.08 ng/mL [facility] Specimen Blood, venous Performing Organization Address [facility] [place] Phone Number [facility] [address] [place] [address] [phone] Urine Drug Screen (08/29/2019 9:58 PM CDT) [...] Urine - Voided, urine Performing Organization Address [facility] [place] Phone Number [facility] [address] [place], [place] [phone] Test (08/29/2019 9:58 PM CDT) Pathologist Sig nature Negative Negative [facility] Specimen Urine Performing Organization Address [facility] [place] Phone Number [facility] [address] [place] [address] [phone] 12 LEAD EKG (08/29/2019 9:43 PM CDT) 12 LEAD EKG FOR [facility] Test Date: 2019-08-29 Pat Name: EMAIN Hart ment: [id number] Room: Gender: F Activities Counselor: [id number] : 1990 2 Requested By: KYREE Marie Order Number: [id number] Nikhil camarena MD: Andria Call Measu rements Intervals [place] Rate: 76 P: -45 MT: 100 QRS: 79 QRSD: 90 T: 27 QT: 367 QTc: 414 Interpretive S tatements ECTOPIC ATRIAL RHYTHM WITH SHORT MT INTERVAL NONSPECIFIC T-WAVE ABNORMALITY ABNORMAL RHYTHM ECG Reviewed by Electronically Signed On 08-30-2019 5:08:22 CDT by Janusz Call Specimen Performing Organization Address [facility] [place] Phone Number SMS POCT BMP POC docked [...] LABORATORY Specimen Blood, venous Performing Organization Address [facility] [place] Phone Number [facility] [address] [place] [address] POCT CREATININE POC docked device (08/29/2019 9:29 PM CDT) Pathologist Sig nature Creatinine POC 0.7 0.6 - 1.3 mg/dL [facility] GFR, Estimated >90 >=90 mL/min/1.73 m2 [facility] Specimen Blood, venous Performing Organization Address City/State/Zipcode Phone Number [facility] [address] [place] [address] [phone] CBC/Diff (08/29/2019 9:22 PM CDT)Only the [...] [facility] Specimen Blood Performing Organization Address [facility]/Zipcode Phone Number [facility] [address] [place] [address] XRAY CHEST 2 VIEWS (08/29/2019 8:45 PM [...] MD, 08/29/2019 9:46 PM Performing Organization Address [facility]/Zipcode Phone Number [facility] Urinalysis (05/30/2019 10:02 PM CITY MAINTENANCE MANAGER) Pathologist Sig nature Color Yellow Colorless, Straw, [facility] Yellow Clarity Hazy (A) Clear [facility] Spec [place], Ur 1.028 1.001 - 1.035 [facility] [...] [facility] Specimen Urine Performing Organization Address [facility] Phone Number [facility] [address] [place], [place] [phone] POCT Urine - (05/30/2019 10:02 PM CITY MAINTENANCE MANAGER) Pathologist Sig nature Control paSS neg Hcg, Quantitative (05/30/2019 9:35 PM CITY MAINTENANCE MANAGER) Pathologist Sig nature hCG, Quantitative <1.0 <5.0 mIU/mL [facility] Specimen Blood Performing Organization Address [facility] Phone Number [facility] [address] [place], [place] [phone] after 04/12/2019 Insurance Payer Benefit Plan / Subscriber ID Effective Dates Phone Addre ss Type Group [employer] xxxxxxx 2019- [phone] [address] [place] [address] [facility] xxxxxxx 2019-Presen [phone] [address] [id number] [place] [address]
--- OUTSIDE RECORDS SUMMARY | 2020-04-12 17:19 | XMS REPORT | Continuity of Care Document ---
:1990 Author Organization [facility] Information [place] Care Team Providers Name Role Phone [facility] Information [place] Unavailable Un available Problems Problem Status Onset Classification Date Comments Sourc e Date Reported Hypokalemia 11/11/2018 [place] rial 9 City FLANK PAIN Active Memori al 9 [facility] Medications Medication Details Route Status Patient Ordering Order Source Instructions Provider Date potassium 20 mEq = 1 Active chloride 20 tab, PO, 019 [facility] mEq oral BID, # 4 [facility] tablet, tab, 0 extended Refill(s) release potassium 40 mEq, Inactive chloride 20 Route: PO, 019 [facility] mEq oral Drug form: [facility] tablet, ERTAB, extended ONCE, release Dosing Weight 62.273, kg, Priority: STAT, Start date: 11/09/18 17:04:00 CDT, Stop date: 11/09/18 17:04:00 CDT Saline Flush Notes: Inactive 0.9% (Same as: 019 [place] Posiflush) Allergies, Adverse Reactions, Alerts No Known Medication Allergies Immunizations No Data Provided for This Section Results Order Name Results Value Reference Date Interpretation Comments Natasha rce Range CHEM PANEL Lipase Lvl 110 73 - 393 11/09 [facility] ELECTROLYTE AGAP 11.8 10.0 - 11/09 MH S 20.0 [facility] ELECTROLYTE B/C Ratio 8 6 - 25 11/09 [facility] ELECTROLYTE Globulin 4.6 2.7 - 4.2 11/09 S [facility] ELECTROLYTE A/G Ratio 0.8 0.7 - 1.6 11/09 S [facility] ELECTROLYTE Glucose Lvl 117 70 - 99 11/09 [facility] ELECTROLYTE BUN 8 7 - 22 11/09 S [facility] ELECTROLYTE CO2 29 24 - 32 11/09 S [facility] ELECTROLYTE Chloride Lvl 103 95 - 109 11/09 [facility] ELECTROLYTE Potassium 2.8 3.5 - 5.1 11/09 Result S Lvl Comment: [facility] Result(s) called to Evert Moore at 11/09/2018 14:04 by hy. Read back OK. ELECTROLYTE Sodium Lvl 141 135 - 145 11/09 MH S [facility] ELECTROLYTE AST 28 0 - 37 11/09 MH S [facility] ELECTROLYTE Creatinine 0.99 0.50 - 11/09 MH S Lvl 1.40 [facility] ELECTROLYTE ALT 32 0 - 65 11/09 MH S [facility] ELECTROLYTE eGFR 78 11/09 Result S Comment: [facility] eGFR is City calculated using the [...] 8.4 6.4 - 8.4 11/09 MH S [facility] ELECTROLYTE Bili Total 0.7 0.2 - 1.3 11/09 MH S [facility] ELECTROLYTE Calcium Lvl 9.7 8.5 - 10.5 11/09 MH S [facility] ELECTROLYTE Albumin Lvl 3.8 3.5 - 5.0 11/09 MH S [facility] ELECTROLYTE Alk Phos 79 39 - 136 11/09 MH S [facility] ENDOCRINOLO S Preg Negative Negative 11/09 GY *NA* /2018 [facility] (11/09/18 1:29 PM) [facility] HEMATOLOGY MPV 9.6 7.4 - 10.4 11/09 [facility] HEMATOLOGY MCHC 33.3 32.0 - 11/09 MH 36.0 [facility] HEMATOLOGY RDW 14.0 11.5 - 11/09 MH 14.5 /2019 [facility] HEMATOLOGY Platelet 249 133 - 450 11/09 /2018 [facility] HEMATOLOGY RBC 5.10 4.20 - 11/09 MH 5.40 /2018 [facility] HEMATOLOGY WBC 7.3 3.7 - 10.4 11/09 /2018 [facility] HEMATOLOGY Hct 40.9 36.0 - 11/09 MH 48.0 /2018 [facility] HEMATOLOGY Hgb 13.6 12.0 - 11/09 MH 16.0 /2018 [facility] HEMATOLOGY MCH 26.7 27.0 - 11/09 MH 31.0 /2018 [facility] HEMATOLOGY MCV 80.3 80.0 - 11/09 MH 98.0 /2018 [facility] HEMATOLOGY Eosinophils 3.7 0.0 - 4.0 11/09 /2018 [facility] HEMATOLOGY Eosinophils 0.3 0.0 - 0.5 11/09 # /2018 [facility] HEMATOLOGY Lymphocytes 1.1 1.0 - 5.5 11/09 # /2018 [facility] HEMATOLOGY Monocytes # 0.8 0.0 - 0.8 11/09 /2018 [facility] HEMATOLOGY Basophils 0.4 0.0 - 1.0 11/09 /2018 [facility] HEMATOLOGY Neutrophils 5.1 1.5 - 8.1 11/09 # /2018 [facility] HEMATOLOGY Lymphocytes 14.7 20.0 - 11/09 40.0 /2018 [facility] HEMATOLOGY Monocytes 11.2 2.0 - 12.0 11/09 /2018 [facility] HEMATOLOGY Segs 70.0 45.0 - 11/09 75.0 [facility] URINE AND UA Ketones Negative 11/09 STOOL /2018 [facility] URINE AND UA WBC 2 0 - 5 11/09 STOOL /2018 [facility] URINE AND Micro? Not Indicated 11/09 STOOL *NA* /2018 [facility] (11/09/18 1:29 PM) [facility] URINE AND UA Bacteria Occasional None Seen 11/09 STOOL /HPF /HPF /2018 [facility] URINE AND UA Sq Epi Moderate Few /LPF 11/09 STOOL /LPF /2018 [facility] URINE AND UA 2.0 0.1 - 1.0 11/09 STOOL Urobilinogen /2018 [facility] URINE AND UA Nitrite Negative Negative 11/09 [facility] (11/09/18 1:29 PM) /2018 [facility] URINE AND UA Leuk Est Negative Negative 11/09 [facility] (11/09/18 1:29 PM) /2018 [facility] URINE AND UA Blood Negative Negative 11/09 [facility] (11/09/18 1:29 PM) /2018 [facility] URINE AND UA Protein Negative Negative 11/09 STOOL mg/dL mg/dL /2018 [facility] URINE AND UA Glucose Negative Negative 11/09 STOOL mg/dL mg/dL /2018 [facility] URINE AND UA Bili Negative Negative 11/09 STOOL *NA* /2018 [facility] (11/09/18 1:29 PM) [facility] URINE AND UA pH 8.0 5.0 - 8.0 11/09 STOOL /2018 [facility] URINE AND UA Color Light Yellow Yellow 11/09 STOOL *NA* /2018 [facility] (11/09/18 1:29 PM) [facility] URINE AND UA Turbidity Clear Clear 11/09 STOOL (11/09/18 1:29 PM) /2018 [facility] URINE AND UA Spec Grav 1.004 <=1.030 11/09 STOOL /2018 [facility] Pathology Reports No Data Provided for This Section Diagnostic Reports No Data Provided for This Section Consultation Notes No Data Provided for This Section Discharge Summaries No Data Provided for This Section History and Physicals No Data Provided for This Section Vital Signs Vital Sign Value Date Comments Source Respitory Rate 17 11/10/2018 [facility] Temperature Oral (F) 98.9 F 11/10/[address] [facility] Heart Rate 84 11/10/2018 [facility] Systolic (mm Hg) 118 11/10/2018 [facility] Diastolic (mm Hg) 68 11/10/2018 [facility] Heart Rate 82 11/09/2018 [facility] y Respitory Rate 18 11/09/2018 [facility] Systolic (mm Hg) 120 11/09/2018 [facility] Diastolic (mm Hg) 71 11/09/2018 [facility] Heart Rate 72 11/09/2018 [facility] Systolic (mm Hg) 115 11/09/2018 [facility] Diastolic (mm Hg) 67 11/09/2018 [facility] Respitory Rate 18 11/09/2018 [facility] Weight 62.273 11/09/2018 [facility] Temperature Oral (F) 99.7 F 11/09/[address] [facility] Height 170.18 cm 11/09/2018 [facility] BMI Calculated 21.5 11/09/2018 [facility] Encounters Location Location Encounter Encounter Reason Attending ADM DC Stat us Source Details Type Number For Provider Date Date Visit [facility] Emergency [id number] Kumar [facility] Procedures No Data Provided for This Section Assessment and Plan No Data Provided for This Section Plan of Care No Data Provided for This Section Social History Social History Date Source Social History TypeResponse 11/09/2018 [facility] Smoking Status Unknown if ever smoked; Concerns [...]
--- OUTSIDE RECORDS SUMMARY | 2020-04-12 17:20 | XMS REPORT | Continuity of Care Document ---
:1990 [facility] [address] [place] [address] Care Team Providers Name Role Phone Prasanna ADAIR, E Attending Clinician Nima ADAIR Attending Clinician Jamal ADAIR D Attending Clinician Rickey Evans Attending Clinician Payers Payer Name Policy Type Policy Number Effective Date Expiration Date Niya giles HOMELESS xxxxxxx 2019 2020 Larios GRANTHOMELESS 00:00:00 23:59:59 Health [id number] [place] [address] [facility] xxxxxxx 2019 Larios PLANNING 00:00:00 Health [facility] [id number], [place] [address] Problems Condition Condition Condition Status Onset Resolution Last Treating Co mments Source Name Details Category Date Date Treatment Clinician Date FLANK PAIN Diagnosis Active 2019-07-14 Memoria 11-09 14:05:00 l FLANK 00:00: [place] PAIN 00 Active 11/09/2018 [facility] Disease Active Mode pool care in care in 07-03 Health third third 00:00: trimester trimester 00 Polyhydram Polyhydram Disease Active 2016-05 H arris nios nios 2-14 Health affecting affecting 00:00: 00 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 [facility] dates 2-14 Health 00:00: 00 Marginal Marginal Disease Active 2016-05 Mode s placenta placenta -17 Health previa previa 00:00: 00 Bipolar Bipolar Disease Active [place] disorder disorder Health Psychosis Psychosis Disease Active [facility] Amphetamin [facility] disorder, disorder, severe, severe, dependence dependence Alcohol Alcohol Disease Active [place] use use Health disorder, disorder, moderate, moderate, dependence dependence Chest pain Chest pain Disease Active H arr Health Hypokalemi Problem 2018-2018-11-11 2018-11-11 Memoria a 18 22:37:04 22:37:04 l 17:00: [place] Hypokalemi 00 a 11/09/2018 11/11/2018 [facility] Allergies, Adverse Reactions, Alerts This patient has no known allergies or adverse reactions. Social History Social Habit Start Date Stop Date Quantity Comments Source History [facility] Alcohol Std Drinks History [facility] Alcohol Binge Sex Assigned At [facility] Alcohol intake 2019-08-29 2019-08-29 Lifetime [facility] lt 00:00:00 00:00:00 non-drinker (finding) History [facility] 2019-08-29 2019-08-29 1 [facility] Alcohol Frequency 00:00:00 00:00:00 Smoking Status Start Date Stop Date Source Current every day smoker 2019-08-29 00:00:00 [facility] Medications Ordered Filled Start Stop Current Ordering Indication Dosage Frequency Signature Comments Components Source Medication Medication Date Date Medication? Clinician (SIG) Name Name risperiDONE Yes Unspecified 1mg Q.5D Take 1 [place] (RISPERDAL) 08-31 mood tablet by [facility] 1 mg tablet 00:00: (affective) mouth 2 00 disorder times daily. gabapentin Yes Unspecified 300mg Take 1 [place] (NEURONTIN) 08-31 mood capsule by [facility] 300 mg 00:00: (affective) mouth 3 capsule 00 disorder times daily. risperiDONE 2019- No Unspecified 1mg Q.5D Take 1 [place] (RISPERDAL) 08-28 mood tablet by He alth [...] 0.9% 18 (Same as: l 18:14: BD [place] 00 Posiflush) Vital Signs Vital Name Observation Time Observation Value Comments Source Systolic blood 2019-08-29 19:32:00 130 mm[Hg] [facility] pressure Diastolic blood 2019-08-29 19:32:00 87 mm[Hg] Mode s Health pressure Heart rate 2019-08-29 19:32:00 90 /min [facility] Body temperature 2019-08-29 19:32:00 36.78 Carleen [facility] Respiratory rate 2019-08-29 19:32:00 18 /min [facility] Oxygen saturation in 2019-08-29 19:32:00 100 /min [facility] Arterial blood by Pulse oximetry Body weight 2019-05-30 18:34:00 75.025 kg [facility] Respitory Rate 2018-11-10 00:23:00 Barbori al Luis Temperature Oral (F) 2018-11-10 00:23:00 98.9 F [facility] [place] Heart Rate 2018-11-10 00:23:00 [facility] Systolic (mm Hg) 2018-11-10 00:23:00 Paxton riakaylie [place] Diastolic (mm Hg) 2018-11-10 00:23:00 Mem orial [place] Heart Rate 2018-11-09 22:33:00 [facility] Respitory Rate 2018-11-09 22:33:00 Memori al Luis Systolic (mm Hg) 2018-11-09 22:33:00 Paxton rial Luis Diastolic (mm Hg) 2018-11-09 22:33:00 Mem orial Luis Heart Rate 2018-11-09 21:05:00 [facility] Systolic (mm Hg) 2018-11-09 21:05:00 Paxton rial [place] Diastolic (mm Hg) 2018-11-09 21:05:00 Mem orial [place] Respitory Rate 2018-11-09 21:05:00 Pinky al Luis Weight 2018-11-09 18:03:00 [facility] [place] Temperature Oral (F) 2018-11-09 18:03:00 99.7 F [facility] [place] Height 2018-11-09 18:03:00 [facility] Calculated 2018-11-09 18:03:00 Memghazal al [place] Procedures Procedure Date / Time Performed Performing Clinician [facility] ECHG EKG PROC 12 LEAD EKG; 2019-08-29 23:53:58 Norma Silva I [facility] TRACING ONLY TROPONIN I POC 2019-08-29 23:16:00 [facility] 2019-08-29 21:58:00 Kyree Diehl [facility] URINE DRUG SCREEN 2019-08-29 21:58:00 [facility]hl [facility] 12 LEAD EKG; 2019-08-29 21:43:01 Kyree Diehl [facility] TRACING ONLY BMP POC 2019-08-29 21:30:00 Unknown, Provider Ric Cody [facility] CREATININE POC 2019-08-29 21:29:00 Unknown, Provider Ric patricio [facility] TROPONIN I POC 2019-08-29 21:26:00 Unknown, Provider Ric patricio [facility] CBC/DIFF 2019-08-29 21:22:00 Kyree Diehl [facility] CBC 2019-08-29 21:22:00 Kyree Diehl [facility] XRAY CHEST 2 VIEWS 2019-08-29 20:45:00 Norma Silva I [facility] URINALYSIS 2019-05-30 22:02:00 Emani Guzman h URINALYSIS 2019-05-30 22:02:00 Emani Guzman POCT URINE DIPSTICK - 2019-05-30 22:02:00 Emani Guzman [facility] BMP POC 2019-05-30 21:36:00 Unknown, Provider Ric patricio lt CBC/DIFF 2019-05-30 21:35:00 Emani Guzman h BETA-HCG, QUANTITATIVE 2019-05-30 21:35:00 Emani Guzman [facility] CBC 2019-05-30 21:35:00 Emani Guzman Plan of Care Planned Activity Planned Date Details Comments Source Future Scheduled Test 2020-02-23 00:00:00 IMM Influenza [facility] Seasonal Feb to July (>/= 19 yrs) [code = IMM Influenza Seasonal Feb to July (>/= 19 yrs)] Future Scheduled Test 2011-09-04 00:00:00 Screening for [facility] malignant neoplasm of cervix (procedure) [code = 111431743] Encounters Start End Encounter Admission Attending Care Care Encounter Source Date/Time Date/Time Type Type Clinicians Facility Department ID 2020-03-27 2020-03-30 Outpatient [facility] H[facility] [id number] 22:16:00 17:25:00 11 2019-08-07 2019-08-07 Outpatient E [facility] [id number] [place] 09:55:00 09:55:00 kaylie Pate l 2019-04-26 2019-04-26 Emergency E [facility] [id number] Mem[place] 21:05:00 21:05:00 [facility] 2018-11-09 2018-11-09 Outpatient EvansKumar [facility] [id number] 13:02:17 19:59:00 Rickey Sumit 00 2018-11-09 2018-11-09 Emergency E [facility] [id number] Memoria 13:02:00 13:02:00 kaylie [facility] 2017-07-03 2017-07-03 Outpatient [facility] [id number] [place] 09:10:28 09:10:28 Health 2017-05-04 2017-05-04 Outpatient [facility] [id number] [place] 12:29:09 12:29:09 Health Results Test Description Test Time Test Comments Results Result Sourc e Comments 12 LEAD EKG 12 LEAD EKG FOR CHP [facility] [place] [facility] 05:08:27 [facility] Test Date: 0786-90-88Cur Name: EMANI CARRENO Department: 5520Patient ID: [id number] Room: Gender: 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: 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: 1990 Requested By: KYREE Mensah Number: [id number] Reading MD: Andria Call MeasurementsIntervals [place] Rate: 76 P: -45PR: 100 QRS: 79QRSD: 90 T: 27QT: 367 QTc: 414 Interpretive StatementsECTOPIC ATRIAL RHYTHM WITH SHORT VT INTERVALNONSPECIFIC T-WAVE ABNORMALITYABNORMAL RHYTHM ECGReviewed by Electron ically Signed On 08-30-2019 5:08:22 CDT by Andria PrestaShopmagdaWe R InteractiveNiya 12 LEAD EKG 12 LEAD EKG FOR CHP Jessica [facility] [place] [facility] 05:07:40 [facility] Test Date: 1331-88-54Tbt Name: EMANI CARRENO Department: 5520Patient ID: [id number] Room: Gender: 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: [id number]: 1990 Requested By: JEANETTE Hernandez Number: [id number] Reading MD: Andria Call MeasurementsIntervals [place] Rate: 81 P: 59PR: 102 QRS: 81QRSD: 89 T: 24QT: 362 QTc: 421 Interpretive StatementsSINUS RHYTHM WITH SINUS ARRHYTHMIA WITH SHORT VT INTERVALNONSPECIFIC ST & T-WAVE ABNORMALITYReviewed by Electron ically Signed On 08-30-2019 5:07:37 CDT by [facility] Urine Drug Screen 2019-08-29 23:38:00 Test Item Value Reference Range Interpretation Comme nts Opiate, Ur (test code = 31581-1) Negative Negative Calibrated Standard: Morphine Positive if uri ne level > or = 300 ng/dL Amphetamine (test code = Positive Negative A Ca librated Standard: 32792-6) D-Methamphetami ne Positive if urine level > o r = 1000 ng/mL Barbiturate (test code = Negative Negative Ca librated Standard: 54418-8) Secobarbital Po sitive if urine level is > or = 200 ng/mL Benzodiazepine (test code = Negative Negative Calibrated Standard: 30637-6) Lormethazepam P ositive if urine level is > or = 200 ng/mL Cocaine (test code = 52239-2) Negative Negative Calibrated Standard: Benzoylecgonine Positive if urine level > or = 30 0 ng/dL PCP (test code = 81841-6) Negative Negative C alibrated Standard: Phencyclidine P ositive if urine level > or = 25 ng/dL Cannabinoid (test code = Negative Negative Ca librated Standard: 11 14962-0) nor-delta(9)-TH C carboxylic acid Positive if uri ne level > or = 50 ng/mL Lab Interpretation (test code = Abnormal 28139-7) [facility] TROPONIN I POC docked [id number] 23:29:00 Test Item Value Reference Range Interpretation Comments Troponin POC (test code = 0.01 ng/mL 0-0.08 51139828) Lab Interpretation (test code = Normal 12424-0) [facility] [id number] 22:57:00 Test Item Value Reference Range Interpretation Comments (test code = 72141967) Negative Negative Lab Interpretation (test code = Normal 13081-8) [facility]Jnmk1783-04-57 22:02:00 Test Item Value Reference Range Interpretation [...] 32.2 g/dL 32-36 RDW (test code = 82247-3) 41.8 fL 36.4-46.3 Platelet (test code = 777-3) 172 K/uL 150-400 Mean Platelet Volume (test code = 11.8 fL 9.4-12.4 72259-4) Percent NRBC (test code = 92950429) 0.0 % Neutrophil (test code = 770-8) 63.7 % 34-70 Lymphs (test code = 736-9) 27.9 % 20-50 Monocytes (test code = 5905-5) 7.5 % 5-12 Eos (test code = 713-8) 0.3 % 0.7-5 L Basos (test code = 706-2) 0.5 % 0.1-1.2 Immature Granulocytes (test code = 0.1 % 0-0.5 54044775) Neutrophils (Absolute) (test code = 4.78 K/uL 1.56-6.13 43927708) Lymphs (Absolute) (test code = 2.09 K/uL 1.18-3.74 57322056) Monocytes(Absolute) (test code = 0.56 K/uL 0.24-0.36 H 98564422) Eos (Absolute) (test code = 0.02 K/uL 0.04-0.36 L 25102243) Baso (Absolute) (test code = 0.04 K/uL 0.01-0.08 29669566) Immature Grans (Abs) (test code = 0.01 K/uL 0-0.03 06210402) Absolute NRBC (test code = 0.00 K/uL 54840033) Lab Interpretation (test code = Abnormal 63514-0) [facility] CHEST 2 [id number] 21:46:52IMPRESSION: No acute thoracic abnormality. Dictated By: [...] report.Signed By: Justina Magana MD, 08/29/2019 9:46 [facility] POCT BMP POC docked [id number] 21:36:00 Test Item Value Reference Range Interpretation Comments Sodium POC (test code = 91568694) 139 mmol/L 136-145 Potassium POC (test code = 3.6 mmol/L 3.5-5.1 49996220) Chloride POC (test code = 104 mmol/L 98-107 29542190) TCO2 POC (test code = 95102861) 26 mmol/L 21-32 Urea Nitrogen POC (test code = 11 mg/dL 7-18 90548005) Glucose POC (test code = 85000702) 88 mg/dL 74-106 Hemoglobin POC (test code = 14.6 g/dL 12-16 54103886) Hematocrit POC (test code = 43.0 % 37-47 22238175) Lab Interpretation (test code = Normal 89632-8) [facility] CREATININE POC docked [id number] 21:33:00 Test Item Value Reference Range Interpretation Comments Creatinine POC (test code = 0.7 mg/dL 0.6-1.3 76351158) GFR, Estimated (test code = >90 >=90 mL/min/1.73 m2 24146924) Lab Interpretation (test code = Normal 94160-7) [facility] Center[facility]cg, [id number] 23:09:00 Test Item Value Reference Range Interpretation Comments hCG, Quantitative (test code = <1.0 <5.0 mIU/mL 46657536) Lab Interpretation (test code = Normal 84286-2) [facility] CenterQygfzcJzjjybohtt9656-65-48 23:06:00 Test Item Value Reference Range Interpretation Comments Color (test code = 99474456) Yellow Colorless, Straw, Yellow Clarity (test code = Hazy Clear A 75388856) Spec [place]be, Ur (test code = 1.028 1.001-1.035 19540379) pH, Ur (test code = 96296918) 6.0 5.0-8.0 Protein, Ur (test code = 2+ Negative mg/dL A 61901559) Glucose, Ur (test code = Negative Negative mg/dL 08684572) Ketone, Ur (test code = Negative Negative mg/dL 33569420) Bilirubin, Ur (test code = Negative Negative mg/dL 54865427) Nitrite, Ur (test code = Negative Negative 27684173) Leukocyte (test code = Negative Negative mg/dL 39639577) Blood, Ur (test code = 3+ Negative mg/dL A 92743089) RBC (test code = 00414495) 92 0- 4 /HPF H WBC (test code = 69527133) 2 0- 5 /HPF Epithelial Cell (test code = 20 <=1 /HPF H 77796839) Mucous (test code = 57085731) Present None seen /HPF A Urobilinogen, Ur (test code = <1.0 <1.0 EU/dL 04819694) Lab Interpretation (test code Abnormal = 85502-5) [facility] Urine - Camvjadxc3925-39-52 22:02:00 Test Item Value Reference Range Interpretation Comments Control (test code = 7172) paSS (test code = 7173) neg Lab Interpretation (test code = Normal 08186-1) [facility] [id number] 18:29:80369Wnfhebrp HermannELECTROLYTES 2018-11-09 18:29:0011.8[facility] XqxurvjCGWMKLIZTLCX7866-06-42 18:29:00 Test Item Value Reference Range Interpretation Comments B/C Ratio (test code = B/C Ratio) 8 1 6-25 [facility] DykqfytBHYAWHICTHOF4226-07-80 18:29:004.6[facility] HermannELECTROLYTES 2018-11-09 18:29:00 Test Item Value Reference Range Interpretation Comments A/G Ratio (test code = A/G Ratio) 0.8 1 0.7-1.6 [facility] SartgudKXQFXXSOBFUC7519-95-57 18:29:02503Ihbcwlqs HermannELECTROLYTES 2018-11-09 18:29:008[facility] XqytkygPHEHZNMDYXBT4734-71-73 18:29:0029[facility] JviaaidNSMWTUKKUYNF5592-40-03 18:29:50343Ohaurpum XiaseqyMSWAAKPYXGRF3625-08-21 18:29:002.8[facility] EhtaratOWBFDBGKEIJS2499-25-33 18:29:33288Bbezaemj Luis SYIXRAGARUWO2203-38-91 18:29:0028[facility] NiuicwaOOKYGPPBQSKG9097-75-49 18:29:00 0.99[facility] GvkyakmUUDXPCXYTTSX2251-79-96 18:29:0032[facility] [place] YQWJGXDTWCNA4513-91-90 18:29:0078[facility] QwsadwzPVBDHBYENEIE4867-79-55 18:29:00 8.4[facility] OuauzvxLGSFCZXARRHX9620-15-02 18:29:000.7[facility] OEWWZLHEFEAQ3246-38-78 18:29:009.7[facility] FolhggxPUNNUZRGMVGI0907-32-65 18:29:003.8[facility] TjvpkoqZWLGHMETICME0264-78-21 18:29:0079[facility] [place] OWOFBPZAGPFEW0011-20-59 18:29:00Negative *NA*(11/09/18 1:29 PM)[facility] ABYUBLZEVY0865-30-58 18:29:009.6[facility] UvuuntoICQTHHIPGZ6342-34-37 18:29:00 33.3[facility] YkunglpYJGEMWCHZV0585-34-88 18:29:0014.0[facility] HermannHEMATOLOGY 2018-11-09 18:29:30767Tuypsqxq ZvidnxrKZNIGJYGHF2446-00-20 18:29:005.10[facility] JborjgvKQPKNNKCHB1785-27-09 18:29:007.3[facility] LjfdflbMDAAKRVLWI6806-65-18 18:29:0040.9[facility] ZcxmyprCWCRADQMXH1005-19-18 18:29:0013.6[facility] Luis YRBJMVIMPJ5542-98-48 18:29:00 Test Item Value Reference Range Interpretation Comments MCH (test code = MCH) 26.7 pg 27.0-31.0 [facility] EwswysmSNCEZLBINE0978-36-62 18:29:0080.3[facility] HermannHEMATOLOGY 2018-11-09 18:29:003.7[facility] QlhxgpuQYGMFKOKKT7246-75-43 18:29:000.3[facility] OxilobuPEFIPHUXZR7164-41-13 18:29:001.1[facility] PiybxhzLDJOCTIHAB0844-87-88 18:29:000.8[facility] HrihvxfEIERQABWBS8298-32-76 18:29:000.4[facility] UFMVOLNIQM0650-13-39 18:29:005.1[facility] AuqwdsxAZSVUDVWLI9485-18-41 18:29:00 14.7[facility] BwqafkhYSRNRDZDXF8257-90-57 18:29:0011.2[facility] HermannHEMATOLOGY 2018-11-09 18:29:0070.0[facility] HermannURINE AND PRBBC0511-57-24 18:29:002 [facility]annURINE AND GTHQT9650-26-33 18:29:00Not Indicated *NA*(11/09/18 1:29 PM)[facility] HermannURINE AND EMFVC5594-01-53 18:29:002.0[facility] [place] URINE AND AUPWN4177-79-93 18:29:00Negative (11/09/18 1:29 PM)[facility] [place] URINE AND MWZXV7949-70-49 18:29:00Negative (11/09/18 1:29 PM)[facility] [place] URINE AND [id number] 18:29:00Negative (11/09/18 1:29 PM)[facility] [place] URINE AND WVMGX6504-36-36 18:29:00Negative *NA*(11/09/18 1:29 PM)[facility] URINE AND [id number] 18:29:00 Test Item Value Reference Range Interpretation Comments UA pH (test code = UA pH) 8.0 1 5.0-8.0 [facility]ann[facility]INE AND [id number] 18:29:00Light Yellow *NA*(11/09/18 1:29 PM)[facility]ann[facility] AND [id number] 18:29:00Clear (11/09/18 1:29 PM) [facility] [id number] 18:29:00 Test Item Value Reference Range Interpretation Comments UA Spec Grav (test code = UA Spec 1.004 1 Grav) Jose Smith
--- NOTE | 2020-04-12 17:31 | EDPHYS ---
Physician Documentation [facility] Name: Lety Boyd Age: 29 yrs Sex: Female : 1990 Arrival Date: 04/12/2020 Time: 17:18 Bed Waiting Private MD: JOLENE Physician Gordon Drew HPI: 04/12 17:42 This 29 yrs old Female presents to ER via Ambulatory with complaints of kb Toothache, Facial Swelling. 17:42 The patient presents with pain, redness, swelling. The problem is located in the lower kb left first molar (#19) and lower left second molar (#18) and lower left third molar (#17). Onset: The symptoms/episode began/occurred last week. Duration: The symptoms are continuous. Modifying factors: The symptoms are alleviated by nothing, the symptoms are aggravated by nothing. Associated signs and symptoms: Pertinent positives: pain, redness in area, swelling. Severity of symptoms: At their worst the symptoms were moderate, in the emergency department the symptoms are unchanged. The patient has not experienced similar symptoms in the past. The patient has been recently seen at the [facility] Emergency Department, this week, for similar complaints. 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 - Social history:: Smoking status: Patient reports the use of cigarette tobacco products, denies chronic smoking, but will smoke occasionally. ROS: 17:40 Constitutional: Negative for fever, chills, and weight loss, Cardiovascular: Negative kb for chest pain, palpitations, and edema, Respiratory: Negative for shortness of breath, cough, wheezing, and pleuritic chest pain, Abdomen/GI: Negative for abdominal pain, nausea, vomiting, diarrhea, and constipation, MS/Extremity: Negative for injury and deformity, Skin: Negative for injury, rash, and discoloration, Neuro: Negative for headache, weakness, numbness, tingling, and seizure. 17:40 ENT: Positive for dental pain, Gum pain Exam: 17:40 Constitutional: This is a well developed, well nourished patient who is awake, alert, kb and in no acute distress. Chest/axilla: Normal chest wall appearance and motion. Nontender with no deformity. No lesions are appreciated. Cardiovascular: Regular rate and rhythm with a normal S1 and S2. No gallops, murmurs, or rubs. Normal PMI, no JVD. No pulse deficits. Respiratory: Lungs have equal breath sounds bilaterally, clear to auscultation and percussion. No rales, rhonchi or wheezes noted. No increased work of breathing, no retractions or nasal flaring. Abdomen/GI: Soft, non-tender, with normal bowel sounds. No distension or tympany. No guarding or rebound. No evidence of tenderness throughout. Skin: Warm, dry with normal turgor. Normal color with no rashes, no lesions, and no evidence of cellulitis. MS/ Extremity: Pulses equal, no cyanosis. Neurovascular intact. Full, normal range of motion. Neuro: Awake and alert, GCS 15, oriented to person, place, time, and situation. Cranial nerves II-XII grossly intact. Motor strength 5/5 in all extremities. Sensory grossly intact. Cerebellar exam normal. Normal gait. 17:40 Head/face: Noted is no obvious of injury or deformity except swelling, that is moderate, of the left jaw, tenderness. 17:40 ENT: Dental exam: abscess, pain, that is moderate, specifically in the lower left third molar (#17), lower left second molar (#18) and lower left first molar (#19). Vital Signs: 17:25 BP 149 / 73; Pulse 85; Resp 17 S; Temp 98.4(TE); Pulse Ox 100% on R/A; Weight 63.5 kg jd3 (R); Height 5 ft. 7 in. (170.18 cm) (R); Pain 10/10; 17:25 Body Mass Index 21.93 (63.50 kg, 170.18 cm) jd3 MDM: 17:31 Patient medically screened. kb 17:42 Data reviewed: vital signs, nurses notes. Data interpreted: Pulse oximetry: on room air kb is 100 %. Interpretation: normal. Counseling: I had a detailed discussion with the patient and/or guardian regarding: the historical points, exam findings, and any diagnostic results supporting the discharge/admit diagnosis, the need for outpatient follow up, a dentist, to return to the emergency department if symptoms worsen or persist or if there are any questions or concerns that arise at home. Administered Medications: 17:38 Drug: TORadol 60 mg Route: IM; Site: right gluteus; jd3 17:58 Follow up: Response: No adverse reaction jd3 17:38 Drug: Augmentin 875 mg Route: PO; jd3 17:58 Follow up: Response: No adverse reaction jd3 Disposition: 04/13 06:05 Co-signature as Attending Physician, Gordon Drew MD I agree with the assessment and petr plan of care. Disposition: 04/12/20 17:31 Discharged to Home. Impression: Periapical abscess without sinus. - Condition is Stable. - Discharge Instructions: Dental Pain, Ftxp-ji-Eecm, Dental Abscess, Zpwp-ms-Cbmp. - Prescriptions for Augmentin 875- 125 mg Oral Tablet - take 1 tablet by ORAL route every 12 hours for 10 days; 20 tablet. - Medication Reconciliation Form, Thank You Letter, Antibiotic Education, Prescription Opioid Use form. - Follow up: Emergency Department; When: As needed; Reason: Worsening of condition. Follow up: Private Physician; When: 2 - 3 days; Reason: Recheck today's complaints, Continuance of care, Re-evaluation by your physician. Signatures: Katt Echols, SECURITY BUSINESS ANALYST-C SECURITY BUSINESS ANALYST-Gordon Marshall MD MD cha Davies, Jonathon, RN RN jd3 Corrections: (The following items were deleted from the chart) 04/12 17:58 17:31 04/12/2020 17:31 Discharged to Home. Impression: Periapical abscess without jd3 sinus. Condition is Stable. Forms are Medication Reconciliation Form, Thank You Letter, Antibiotic Education, Prescription Opioid Use. Follow up: Emergency Department; When: As needed; Reason: Worsening of condition. Follow up: Private Physician; When: 2 - 3 days; Reason: Recheck today's complaints, Continuance of care, Re-evaluation by your physician. kb
--- NOTE | 2020-04-12 17:31 | ER ---
Nurse's Notes [facility] Name: Lety Boyd Age: 29 yrs Sex: Female : 1990 Arrival Date: 04/12/2020 Time: 17:18 Bed Waiting Private MD: Diagnosis: Periapical abscess without sinus Presentation: 04/12 17:22 Chief complaint: EMS states: "I have a bad tooth in the back on my left side of my jd3 mouth and now it is swelling and worse since my last visit here when I was seen for the same issue.". Coronavirus screen: At this time, the client does not indicate any symptoms associated with coronavirus-19. Ebola Screen: Patient negative for fever greater than or equal to 101.5 degrees Fahrenheit, and additional compatible Ebola Virus Disease symptoms. Initial Sepsis Screen: Does the patient meet any 2 criteria? No. Patient's initial sepsis screen is negative. Does the patient have a suspected source of infection? No. Patient's initial sepsis screen is negative. Risk Assessment: Do you want to hurt yourself or someone else? Patient reports no desire to harm self or others. Onset of symptoms was April 10, 2020. 17:22 Method Of Arrival: Ambulatory [facility] 17:22 Acuity: JULIA 4 jd3 17:27 Note pt reports she has been taking amoxicillin and dicofenac sodium. jd3 Triage Assessment: 17:57 EENT: Reports pain in left jaw. jd3 RE ETCHER: 17:58 LMP N/A - Irregular menses jd3 Historical: - Allergies: 17:24 No Known Allergies; jd3 - Home Meds: 17:24 quetiapine oral oral [Active]; jd3 - PMHx: 17:24 Anxiety; Asthma; jd3 - PSHx: 17:24 ; Tonsillectomy; jd3 - Immunization history:: Adult Immunizations up to date. - Social history:: Smoking status: Patient reports the use of cigarette tobacco products, denies chronic smoking, but will smoke occasionally. Screenin:56 Abuse screen: Denies threats or abuse. Nutritional screening: No deficits noted. jd3 Tuberculosis screening: No symptoms or risk factors identified. Fall Risk Ambulatory Aid- None/Bed Rest/Nurse Assist (0 pts). Gait- Normal/Bed Rest/Wheelchair (0 pts) Mental Status- Oriented to own ability (0 pts). Total Merritt Fall Scale indicates No Risk (0-24 pts). Assessment: 17:56 General: Appears in no apparent distress. uncomfortable, Behavior is calm, cooperative, jd3 appropriate for age. Pain: Complains of pain in left side of head Quality of pain is described as aching. Neuro: Level of Consciousness is awake, alert, obeys commands, Oriented to person, place, time, situation. Cardiovascular: Denies chest pain, Capillary refill < 3 seconds Patient's skin is warm and dry. Respiratory: Airway is patent Respiratory effort is even, unlabored, Respiratory pattern is regular, symmetrical, Denies cough, shortness of breath. GI: No signs and/or symptoms were reported involving the gastrointestinal system. : No signs and/or symptoms were reported regarding the genitourinary system. EENT: Poor dentition noted. Absence of teeth noted - lower left first molar (#19) and lower left second molar (#18) and lower left third molar (#17). Derm: Skin is intact, Skin is dry, Skin is normal, Skin temperature is warm. Musculoskeletal: Circulation, motion, and sensation intact. Range of motion: intact in all extremities, Swelling present in left jaw. Vital Signs: 17:25 BP 149 / 73; Pulse 85; Resp 17 S; Temp 98.4(TE); Pulse Ox 100% on R/A; Weight 63.5 kg [facility] (R); Height 5 ft. 7 in. (170.18 cm) (R); Pain 10/10; 17:25 Body Mass Index 21.93 (63.50 kg, 170.18 cm) [facility] ED Course: 17:18 Patient arrived in ED. as 17:23 Triage completed. [facility] 17:26 Arm band placed on. [facility] 17:30 [facility]. kb 17:30 Gordon Drew MD is Attending Physician. kb 17:57 Patient has correct armband on for positive identification. Bed in low position. Call [facility] light in reach. Side rails up X 1. Pulse ox on. NIBP on. 17:57 Assist provider with bone marrow aspiration. Patient did not have IV access during this [facility] emergency room visit. Administered Medications: 17:38 Drug: TORadol 60 mg Route: IM; Site: right gluteus; jd3 17:58 Follow up: Response: No adverse reaction jd3 17:38 Drug: Augmentin 875 mg Route: PO; jd3 17:58 Follow up: Response: No adverse reaction jd3 Outcome: 17:31 Discharge ordered by . ivonne 17:57 Discharged to home ambulatory, with friend. jd3 17:57 Condition: stable 17:57 Discharge instructions given to patient, Instructed on discharge instructions, follow up and referral plans. medication usage, Demonstrated understanding of instructions, follow-up care, medications. 17:58 Patient left the ED. jd3 Signatures: Katt Echols FNP-C [facility] [place], RN RN jd3 Corrections: (The following items were deleted from the chart) 17:27 17:22 Acuity: JULIA 3 jd3 jd3 17:38 17:25 Pulse 85bpm; Resp 17bpm; Spontaneous; Pulse Ox 100% RA; Temp 98.4F Temporal; 63.5 jd3 kg Reported; Height 5 ft. 7 in. Reported; BMI: 21.9; Pain 10/10; jd3 17:39 17:22 Acuity: JULIA 3 jd3 jd3
[2020-04-12] MEDS ORDERED: AMOX/K CLAV 875 MG TAB ONE (17:46)
[2020-04-12] MEDS ORDERED: KETOROLAC 30 MG/ML INJ ONE (17:46)
[2020-04-13 06:32] VITALS: BP 149/73; TEMP 98.4; O2SAT 100
== END 2020-04-12 17:58 | disposition home or self-care (01) ==
LOC: ER 17:17
DX: K04.7 Periapical abscess without sinus (principal); F17.210 Nicotine dependence, cigarettes, uncomplicated
CPT/HCPCS: 96372; 99284